=== PATIENT | female | born 1965 | race Caucasian/White ===

== ENCOUNTER → 2017-02-19 | Outpatient (CLI) | payer OTHER ==
[2017-02-19 19:11] LABS: Appearance,CSF Clear
[2017-02-23 02:19] LABS: Lyme Specimen Source Not Provided
== END | disposition home or self-care (01) ==
LOC: LABWHC1 15:05
PROVIDERS: ATTEND Psychiatry & Neurology Neurology
DX: R42 Dizziness and giddiness (principal); R51 Headache; R20.0 Anesthesia of skin
CPT/HCPCS: 36415; 82040; 82042; 82784; 83873; 83916; 84157; 87476; 88108; 89050

== ENCOUNTER → 2017-05-26 | Outpatient (CLI) | payer OTHER ==
[2017-05-26 11:19] LABS: Basophils % (A) 1 %; CH 29.4; CHCM 30.9; Eosinophils # (A) 0.1 k/uL (0-0.7); Eosinophils % (A) 2 %; HDW 2.54; HGB 13.2 gm/dL (11.4-16.0); Hypochromasia Slight; Luc # (Auto) 0.06; Luc % (Auto) 1; Lymphocytes # (A) 1.4 k/uL (1.0-4.8); Lymphocytes % (A) 31 %; MCH 29.4 pg (25.0-35.0); MCHC 30.7 g/dL (31.0-37.0); MCV 95.8 fL (80.0-100.0); Mean Platelet Volume 7.9; Monocytes # (A) 0.3 k/uL (0-1.0); Monocytes % (A) 7 %; Neutrophils # (A) 2.7 k/uL (1.3-7.7); Neutrophils % (A) 59 %; RBC 4.49 m/uL (3.80-5.40); RDW 12.7 % (11.5-15.5); WBC 4.6 k/uL (3.8-10.6); WBC (Perox) 4.82
[2017-05-26 11:24] LABS: ALT 38 U/L (9-52); AST 17 U/L (14-36); Alkaline Phosphatase 91 U/L (38-126); Anion Gap 7 mmol/L; Blood Urea Nitrogen 13 mg/dL (7-17); Calcium 9.5 mg/dL (8.4-10.2); Carbon Dioxide 22 mmol/L (22-30); Chloride 115 mmol/L (98-107); Glucose 94 mg/dL (74-99); Non-African American GFR(MDRD) >60 (>60 ml/min/1.73 sqM); Potassium 4.2 mmol/L (3.5-5.1); Sodium 144 mmol/L (137-145); Total Bilirubin 0.3 mg/dL (0.2-1.3); Total Protein 6.6 g/dL (6.3-8.2)
== END | disposition home or self-care (01) ==
LOC: LABWHC1 10:52
PROVIDERS: ATTEND Physician Assistant
DX: E55.9 Vitamin D deficiency, unspecified (principal); G35 Multiple sclerosis
CPT/HCPCS: 36415; 80053; 82306; 82607; 84439; 84443; 84481; 85025

== ENCOUNTER → 2017-08-12 | Outpatient (CLI) | payer OTHER ==
[2017-08-12 12:55] LABS: Basophils % (A) 1 %; Eosinophils # (A) 0.1 k/uL (0-0.7); Eosinophils % (A) 2 %; HCT 41.4 % (34.0-46.0); HGB 13.1 gm/dL (11.4-16.0); Hypochromasia Slight; Lymphocytes # (A) 1.8 k/uL (1.0-4.8); Lymphocytes % (A) 32 %; MCH 29.1 pg (25.0-35.0); MCHC 31.7 g/dL (31.0-37.0); MCV 91.7 fL (80.0-100.0); Mean Platelet Volume 8.2; Monocytes # (A) 0.3 k/uL (0-1.0); Monocytes % (A) 5 %; Neutrophils # (A) 3.5 k/uL (1.3-7.7); Neutrophils % (A) 60 %; Platelet Count 288 k/uL (150-450); RBC 4.52 m/uL (3.80-5.40); RDW 14.3 % (11.5-15.5); WBC 5.8 k/uL (3.8-10.6)
[2017-08-12 13:19] LABS: Albumin 3.8 g/dL (3.5-5.0); Bilirubin, Delta 0.2 mg/dL (0.0-0.2); Bilirubin,Unconjugated 0.2 mg/dL (0.0-1.1); Total Bilirubin 0.4 mg/dL (0.2-1.3); Total Protein 6.4 g/dL (6.3-8.2)
== END | disposition home or self-care (01) ==
LOC: LABWHC1 12:16
PROVIDERS: ATTEND Psychiatry & Neurology Neurology
DX: G35 Multiple sclerosis (principal); M79.1 Myalgia
CPT/HCPCS: 36415; 80076; 82085; 82550; 85025

== ENCOUNTER → 2017-10-13 | Outpatient (CLI) | payer OTHER ==
--- NOTE | 2017-10-13 13:04 | MR ---
MRI CERVICAL SPINE: CLINICAL HISTORY: Cervicalgia per order. Headache with sharp neck pain for 9 to 12 months causing phan n or weakness in both arms and fingers per patient. TECHNIQUE: Multiplanar, multisequence imaging of the cervical spine is performed without and with IV contrast, patient is injected with 8.5 cc of Gadavist for this exam. COMPARISON: None. FINDINGS: Sagittal images of the cervical spine show the craniocervical junction to appear within nor mal limits. The cervical and upper thoracic spinal cord is normal in course, caliber, and signal. V ertebral alignment is slightly straightened. The vertebral body and intravertebral disk heights are normal. Small posterior disc herniations are seen C5-C6 through C7-T1 level on sagittal images mildly effacing anterior thecal sac. No significant spurring is present. The bone marrow signal intensity i s within normal limits. No suspicious postcontrast enhancement is seen. Axial images show the C2-C3, C3-C4, C4-C5 levels all to appear within normal limits. Axial images at C5-C6 level show broad-based right paracentral disc protrusion effacing anterolateral thecal sac on axial image 22, bilateral neural foramina are patent. Axial images at C6-C7 level show more focal central disc protrusion mildly effacing anterior thecal s ac on axial image 13, bilateral neural foramina are patent. Axial images at C7-T1 level also show focal central disc protrusion effacing anterior thecal sac on a xial image 7, bilateral neural foramina are patent. IMPRESSION: Multilevel disc herniations in the mid to lower cervical spine as detailed above.
== END | disposition home or self-care (01) ==
LOC: RADMRIMAIN 12:00
PROVIDERS: ATTEND Psychiatry & Neurology Neurology
DX: M50.222 Other cervical disc displacement at C5-C6 level (principal)
CPT/HCPCS: 72156; A9581

== ENCOUNTER → 2017-12-29 | Outpatient (CLI) | payer OTHER ==
[2017-12-29 14:27] LABS: Basophils % (A) 1 %; Eosinophils # (A) 0.1 k/uL (0-0.7); Eosinophils % (A) 2 %; HCT 41.3 % (34.0-46.0); HGB 13.1 gm/dL (11.4-16.0); Lymphocytes # (A) 1.8 k/uL (1.0-4.8); Lymphocytes % (A) 33 %; MCHC 31.8 g/dL (31.0-37.0); Monocytes # (A) 0.3 k/uL (0-1.0); Monocytes % (A) 6 %; Neutrophils # (A) 3.1 k/uL (1.3-7.7); Neutrophils % (A) 58 %; Platelet Count 253 k/uL (150-450); RBC 4.54 m/uL (3.80-5.40); RDW 13.1 % (11.5-15.5); WBC 5.4 k/uL (3.8-10.6)
[2017-12-29 15:01] LABS: ALT 32 U/L (9-52); AST 22 U/L (14-36); Albumin 4.5 g/dL (3.5-5.0); Alkaline Phosphatase 102 U/L (38-126); Anion Gap 15 mmol/L; Blood Urea Nitrogen 10 mg/dL (7-17); Calcium 10.1 mg/dL (8.4-10.2); Carbon Dioxide 21 mmol/L (22-30); Chloride 111 mmol/L (98-107); Glucose 91 mg/dL (74-99); Sodium 147 mmol/L (137-145); Total Bilirubin 0.3 mg/dL (0.2-1.3); Total Protein 7.1 g/dL (6.3-8.2)
== END | disposition home or self-care (01) ==
LOC: LABWHC1 13:12
PROVIDERS: ATTEND Physician Assistant
DX: G35 Multiple sclerosis (principal); I49.9 Cardiac arrhythmia, unspecified
CPT/HCPCS: 36415; 80053; 85025; 93005

== ENCOUNTER → 2018-01-11 | Outpatient (CLI) | payer OTHER | END | disposition home or self-care (01) | LOC: LABWHC1 12:02 | PROVIDERS: ATTEND Physician Assistant | DX: G35 Multiple sclerosis (principal) | CPT/HCPCS: 36415; 86787 ==

== ENCOUNTER → 2018-02-02 | Outpatient (CLI) | payer OTHER ==
--- NOTE | 2018-02-02 10:41 | MR ---
EXAMINATION TYPE: MR brain wo/w con DATE OF EXAM: 02/02/2018 COMPARISON: MRI brain May 20, 2017 HISTORY: Multiple sclerosis per order. Symptoms of bilateral extremity numbness and weakness per kesha ent. TECHNIQUE: Multiplanar, multisequence images of the brain and brainstem is performed without and with IV contras t, utilizing 8.5 mL intravenous Gadavist gadolinium contrast is administered intravenously. Demyelin ating disease protocol with additional Sagittal Flair sequence performed. FINDINGS: T2 Lesions Present : Yes Approximate Number of Lesions: I estimate approximately 10-15 Locations Identified : Scattered, no infratentorial involvement is noted. Size of Reference Lesion(s): 1. 0.6 cm x 0.3 cm x 0.4 cm on axial image 20 and sagittal image 13 deep left frontal elongated lesi on or 2 small adjacent lesions is grossly stable in size and appearance. 2 0.6 cm x 0.5 cm x 0.2 cm on axial image 20 and sagittal image 31 irregular subcortical posterior right frontal lesion felt stable. Enhancing Lesion(s) Present: No T1 Hypointense Lesion(s) Present: Yes Change from Prior: Few new tiny lesions current exam not clearly seen on prior, for reference 2 -- 1 to 2 mm lesions subcortical anterior left frontal region axial image 18 Diffusion weighted images demonstrate no evidence of a recent infarct or other diffusion abnormality. There is no worrisome extra-axial fluid collection. The ventricular system and cisternal spaces ar e normal in size and appearance. The brain volume is age appropriate. Midline structures demonstrate normal morphology. The craniocervical junction appears within normal limits. Post contrast images demonstrate no abnormal enhancement. The dural venous sinuses appear pa tent. The visualized sinuses are clear and the globes are intact. IMPRESSION: Mild nonspecific white matter changes redemonstrated may be on basis of known multiple sc lerosis within suspected new tiny bilateral lesions versus prior. No enhancing or active lesions are evident.
== END | disposition home or self-care (01) ==
LOC: RADMRIMAIN 09:37
PROVIDERS: ATTEND Psychiatry & Neurology Neurology
DX: G35 Multiple sclerosis (principal); R90.89 Other abnormal findings on diagnostic imaging of central nervous system
CPT/HCPCS: 70553; A9581

== ENCOUNTER → 2018-05-17 | Outpatient (CLI) | payer OTHER ==
[2018-05-17 09:54] LABS: Basophils % (A) 0 %; Eosinophils # (A) 0.1 k/uL (0-0.7); Eosinophils % (A) 2 %; HCT 39.8 % (34.0-46.0); HGB 12.7 gm/dL (11.4-16.0); Lymphocytes # (A) 0.3 k/uL (1.0-4.8); Lymphocytes % (A) 10 %; MCH 29.7 pg (25.0-35.0); MCHC 31.9 g/dL (31.0-37.0); Mean Platelet Volume 7.1; Monocytes # (A) 0.2 k/uL (0-1.0); Monocytes % (A) 8 %; Neutrophils # (A) 2.5 k/uL (1.3-7.7); Neutrophils % (A) 79 %; Platelet Count 306 k/uL (150-450); RBC 4.28 m/uL (3.80-5.40); RDW 12.9 % (11.5-15.5); WBC 3.2 k/uL (3.8-10.6)
[2018-05-17 17:49] LABS: Albumin 4.5 g/dL (3.80-4.90); Albumin/Globulin Ratio 2.37 (1.20-2.10); Anion Gap 9.8 mmol/L (4.00-12.00); Carbon Dioxide 23.2 mmol/L (21.6-31.8); Globulin 1.9 g/dL (2.1-3.7); Total Bilirubin 0.3 mg/dL (0.2-1.2); Total Protein 6.4 g/dL (6.2-8.2)
== END ==
LOC: LABWHC1 08:53
PROVIDERS: ATTEND Physician Assistant
DX: G35 Multiple sclerosis (principal)
CPT/HCPCS: 36415; 80053; 82306; 85025

== ENCOUNTER → 2018-09-09 | Outpatient (CLI) | payer OTHER ==
[2018-09-09 13:10] LABS: Basophils % (A) 1 %; Eosinophils # (A) 0.1 k/uL (0-0.7); Eosinophils % (A) 2 %; HCT 41.1 % (34.0-46.0); HGB 12.7 gm/dL (11.4-16.0); Hypochromasia Slight; Lymphocytes # (A) 0.3 k/uL (1.0-4.8); Lymphocytes % (A) 8 %; MCV 93.8 fL (80.0-100.0); Mean Platelet Volume 8.4; Monocytes # (A) 0.4 k/uL (0-1.0); Monocytes % (A) 9 %; Neutrophils # (A) 3.3 k/uL (1.3-7.7); Neutrophils % (A) 80 %; Platelet Count 262 k/uL (150-450); RBC 4.38 m/uL (3.80-5.40); RDW 13.3 % (11.5-15.5); WBC 4.1 k/uL (3.8-10.6)
[2018-09-09 19:21] LABS: Albumin 4.3 g/dL (3.80-4.90); Albumin/Globulin Ratio 2.26 (1.60-3.17); Anion Gap 11.2 mmol/L (4.00-12.00); Calcium 9.8 mg/dL (8.7-10.3); Carbon Dioxide 23.8 mmol/L (21.6-31.8); Globulin 1.9 g/dL (1.6-3.3); Potassium 3.7 mmol/L (3.5-5.5); Total Bilirubin 0.3 mg/dL (0.2-1.2); Total Protein 6.2 g/dL (6.2-8.2)
== END | disposition home or self-care (01) ==
LOC: LABWHC1 12:39
PROVIDERS: ATTEND Physician Assistant
DX: G35 Multiple sclerosis (principal)
CPT/HCPCS: 36415; 80053; 82306; 85025

== ENCOUNTER → 2018-09-20 | Outpatient (CLI) | payer OTHER ==
[2018-09-20 14:44] LABS: Basophils % (A) 1 %; Eosinophils # (A) 0.1 k/uL (0-0.7); Eosinophils % (A) 2 %; HCT 40.2 % (34.0-46.0); HGB 12.4 gm/dL (11.4-16.0); Hypochromasia Slight; Lymphocytes # (A) 0.4 k/uL (1.0-4.8); Lymphocytes % (A) 11 %; MCH 28.9 pg (25.0-35.0); MCHC 30.9 g/dL (31.0-37.0); MCV 93.3 fL (80.0-100.0); Monocytes # (A) 0.3 k/uL (0-1.0); Monocytes % (A) 9 %; Neutrophils # (A) 2.8 k/uL (1.3-7.7); Neutrophils % (A) 76 %; Platelet Count 268 k/uL (150-450); RBC 4.31 m/uL (3.80-5.40); RDW 13.2 % (11.5-15.5); WBC 3.7 k/uL (3.8-10.6)
== END ==
LOC: LABWHC1 13:31
PROVIDERS: ATTEND Physician Assistant
DX: G35 Multiple sclerosis (principal)
CPT/HCPCS: 36415; 85025

== ENCOUNTER → 2018-09-27 | Outpatient (CLI) | payer OTHER ==
[2018-09-27 12:43] LABS: Basophils % (A) 1 %; Eosinophils # (A) 0.1 k/uL (0-0.7); Eosinophils % (A) 4 %; HCT 40.7 % (34.0-46.0); HGB 12.6 gm/dL (11.4-16.0); Hypochromasia Slight; Lymphocytes # (A) 0.3 k/uL (1.0-4.8); Lymphocytes % (A) 10 %; MCH 28.3 pg (25.0-35.0); MCHC 30.9 g/dL (31.0-37.0); MCV 91.8 fL (80.0-100.0); Mean Platelet Volume 7.6; Monocytes # (A) 0.3 k/uL (0-1.0); Monocytes % (A) 9 %; Neutrophils # (A) 2.7 k/uL (1.3-7.7); Neutrophils % (A) 75 %; Platelet Count 271 k/uL (150-450); RBC 4.44 m/uL (3.80-5.40); RDW 13.4 % (11.5-15.5); WBC 3.5 k/uL (3.8-10.6)
== END ==
LOC: LABWHC1 11:48
PROVIDERS: ATTEND Physician Assistant
DX: G35 Multiple sclerosis (principal)
CPT/HCPCS: 36415; 85025

== ENCOUNTER → 2018-10-28 | Outpatient (CLI) | payer OTHER ==
[2018-10-28 12:44] LABS: Basophils % (A) 1 %; Eosinophils # (A) 0.2 k/uL (0-0.7); Eosinophils % (A) 5 %; HGB 12.3 gm/dL (11.4-16.0); Hypochromasia Slight; Lymphocytes # (A) 0.5 k/uL (1.0-4.8); Lymphocytes % (A) 13 %; MCH 29.2 pg (25.0-35.0); MCHC 31.5 g/dL (31.0-37.0); MCV 92.6 fL (80.0-100.0); Mean Platelet Volume 8.4; Monocytes # (A) 0.3 k/uL (0-1.0); Monocytes % (A) 8 %; Neutrophils # (A) 2.8 k/uL (1.3-7.7); Neutrophils % (A) 72 %; Platelet Count 275 k/uL (150-450); RBC 4.21 m/uL (3.80-5.40); WBC 3.9 k/uL (3.8-10.6)
== END ==
LOC: LABWHC1 11:38
PROVIDERS: ATTEND Physician Assistant
DX: G35 Multiple sclerosis (principal)
CPT/HCPCS: 36415; 85025

== ENCOUNTER → 2018-12-27 | Outpatient (CLI) | payer OTHER ==
[2018-12-27 17:46] LABS: Basophils % (A) 0 %; Eosinophils # (A) 0.1 k/uL (0-0.7); Eosinophils % (A) 2 %; HCT 39.1 % (34.0-46.0); HGB 12.3 gm/dL (11.4-16.0); Hypochromasia Slight; Lymphocytes # (A) 0.5 k/uL (1.0-4.8); Lymphocytes % (A) 14 %; MCH 28.9 pg (25.0-35.0); MCHC 31.3 g/dL (31.0-37.0); MCV 92.1 fL (80.0-100.0); Mean Platelet Volume 8.2; Monocytes # (A) 0.3 k/uL (0-1.0); Monocytes % (A) 8 %; Neutrophils # (A) 2.9 k/uL (1.3-7.7); Neutrophils % (A) 74 %; Platelet Count 236 k/uL (150-450); RBC 4.25 m/uL (3.80-5.40); RDW 14.4 % (11.5-15.5); WBC 3.9 k/uL (3.8-10.6)
[2018-12-28 01:03] LABS: African American GFR (CKD) 116.3 (60.0-200.0); Albumin 4.6 g/dL (3.80-4.90); Albumin/Globulin Ratio 2.56 (1.60-3.17); Anion Gap 7.8 mmol/L (4.00-12.00); BUN/Creat Ratio 28.57 Ratio (12.00-20.00); Calcium 9.4 mg/dL (8.7-10.3); Carbon Dioxide 22.2 mmol/L (21.6-31.8); Globulin 1.8 g/dL (1.6-3.3); Potassium 3.9 mmol/L (3.5-5.5); Total Bilirubin 0.2 mg/dL (0.2-1.2); Total Protein 6.4 g/dL (6.2-8.2)
== END | disposition home or self-care (01) ==
LOC: LABWHC1 17:15
PROVIDERS: ATTEND Physician Assistant
DX: G35 Multiple sclerosis (principal)
CPT/HCPCS: 36415; 80053; 85025

== ENCOUNTER → 2019-05-06 | Outpatient (CLI) | payer OTHER ==
[2019-05-06 14:59] LABS: Basophils % (A) 0 %; Eosinophils # (A) 0.1 k/uL (0-0.7); Eosinophils % (A) 1 %; HGB 12.2 gm/dL (11.4-16.0); Lymphocytes # (A) 0.4 k/uL (1.0-4.8); Lymphocytes % (A) 11 %; MCH 29.1 pg (25.0-35.0); MCHC 30.5 g/dL (31.0-37.0); MCV 95.5 fL (80.0-100.0); Mean Platelet Volume 7.4; Monocytes # (A) 0.2 k/uL (0-1.0); Monocytes % (A) 5 %; Neutrophils # (A) 3.4 k/uL (1.3-7.7); Neutrophils % (A) 81 %; Platelet Count 287 k/uL (150-450); RBC 4.19 m/uL (3.80-5.40); RDW 13.1 % (11.5-15.5); WBC 4.2 k/uL (3.8-10.6)
[2019-05-06 18:32] LABS: African American GFR (CKD) 116.3 (60.0-200.0); Albumin 4.6 g/dL (3.80-4.90); Albumin/Globulin Ratio 2.56 (1.60-3.17); Anion Gap 7.8 mmol/L (4.00-12.00); Calcium 9.8 mg/dL (8.7-10.3); Carbon Dioxide 22.2 mmol/L (21.6-31.8); Globulin 1.8 g/dL (1.6-3.3); Potassium 3.7 mmol/L (3.5-5.5); Total Bilirubin 0.2 mg/dL (0.3-1.2); Total Protein 6.4 g/dL (6.2-8.2)
== END | disposition home or self-care (01) ==
LOC: LABWHC1 13:52
PROVIDERS: ATTEND Physician Assistant
DX: G35 Multiple sclerosis (principal)
CPT/HCPCS: 36415; 80053; 85025

== ENCOUNTER → 2019-05-31 | Outpatient (CLI) | payer OTHER ==
[2019-05-31 14:13] LABS: Basophils % (A) 0 %; Eosinophils % (A) 1 %; HCT 40.4 % (34.0-46.0); HGB 12.8 gm/dL (11.4-16.0); Hypochromasia Slight; Lymphocytes # (A) 0.5 k/uL (1.0-4.8); Lymphocytes % (A) 8 %; MCH 30.3 pg (25.0-35.0); MCHC 31.7 g/dL (31.0-37.0); MCV 95.5 fL (80.0-100.0); Mean Platelet Volume 7.1; Monocytes # (A) 0.4 k/uL (0-1.0); Monocytes % (A) 7 %; Neutrophils % (A) 84 %; Platelet Count 246 k/uL (150-450); RBC 4.23 m/uL (3.80-5.40); RDW 12.7 % (11.5-15.5)
== END | disposition home or self-care (01) ==
LOC: LABWHC1 12:59
PROVIDERS: ATTEND Physician Assistant
DX: G35 Multiple sclerosis (principal)
CPT/HCPCS: 36415; 85025

== ENCOUNTER → 2019-09-22 | Outpatient (CLI) | payer OTHER ==
[2019-09-22 18:46] LABS: ALT 28 U/L (8-44); AST 22 U/L (13-35); Alkaline Phosphatase 104 U/L (41-126); Bilirubin, Conjugated <0.20 mg/dL (0.20-0.40); Globulin 1.8 g/dL (1.6-3.3); Total Bilirubin 0.2 mg/dL (0.2-1.2); Total Protein 6.3 g/dL (6.2-8.2)
== END | disposition home or self-care (01) ==
LOC: LABWHC1 12:29
PROVIDERS: ATTEND Physician Assistant
DX: G35 Multiple sclerosis (principal); Z51.81 Encounter for therapeutic drug level monitoring
CPT/HCPCS: 36415; 80076

== ENCOUNTER → 2020-03-19 | Outpatient (CLI) | payer OTHER ==
[2020-03-19 11:10] LABS: Basophils % (A) 1 %; Eosinophils # (A) 0.1 k/uL (0-0.7); Eosinophils % (A) 1 %; HCT 39.6 % (34.0-46.0); HGB 12.1 gm/dL (11.4-16.0); Hypochromasia Slight; Lymphocytes # (A) 0.4 k/uL (1.0-4.8); Lymphocytes % (A) 10 %; MCH 28.1 pg (25.0-35.0); MCHC 30.4 g/dL (31.0-37.0); MCV 92.4 fL (80.0-100.0); Mean Platelet Volume 8.4; Monocytes # (A) 0.3 k/uL (0-1.0); Monocytes % (A) 7 %; Neutrophils # (A) 3.2 k/uL (1.3-7.7); Neutrophils % (A) 78 %; Platelet Count 240 k/uL (150-450); RBC 4.29 m/uL (3.80-5.40); RDW 13.4 % (11.5-15.5); WBC 4.1 k/uL (3.8-10.6)
[2020-03-19 18:50] LABS: African American GFR (CKD) 115.5 (60.0-200.0); Albumin 4.3 g/dL (3.80-4.90); Albumin/Globulin Ratio 2.53 (1.60-3.17); Anion Gap 7.4 mmol/L (4.00-12.00); BUN/Creat Ratio 28.57 Ratio (12.00-20.00); Calcium 9.4 mg/dL (8.7-10.3); Carbon Dioxide 21.6 mmol/L (21.6-31.8); Globulin 1.7 g/dL (1.6-3.3); Non-African American GFR(CKD) 99.6 (60.0-200.0); Potassium 3.9 mmol/L (3.5-5.5); Total Bilirubin 0.2 mg/dL (0.2-1.2)
== END | disposition home or self-care (01) ==
LOC: LABWHC1 09:47
PROVIDERS: ATTEND Physician Assistant
DX: G35 Multiple sclerosis (principal)
CPT/HCPCS: 36415; 80053; 85025

== ENCOUNTER → 2020-05-08 | Outpatient (CLI) | payer OTHER ==
[2020-05-08 12:45] LABS: Basophils % (A) 0 %; Eosinophils # (A) 0.1 k/uL (0-0.7); Eosinophils % (A) 1 %; HCT 42.7 % (34.0-46.0); HGB 13.1 gm/dL (11.4-16.0); Hypochromasia Slight; Lymphocytes # (A) 0.4 k/uL (1.0-4.8); Lymphocytes % (A) 8 %; MCH 28.8 pg (25.0-35.0); MCHC 30.7 g/dL (31.0-37.0); MCV 93.5 fL (80.0-100.0); Mean Platelet Volume 8.8; Monocytes # (A) 0.3 k/uL (0-1.0); Monocytes % (A) 6 %; Neutrophils # (A) 4.1 k/uL (1.3-7.7); Neutrophils % (A) 83 %; Platelet Count 242 k/uL (150-450); RBC 4.56 m/uL (3.80-5.40); RDW 13.9 % (11.5-15.5); WBC 4.9 k/uL (3.8-10.6)
== END | disposition home or self-care (01) ==
LOC: LABWHC1 11:01
PROVIDERS: ATTEND Physician Assistant
DX: D72.820 Lymphocytosis (symptomatic) (principal)
CPT/HCPCS: 36415; 85025

== ENCOUNTER → 2020-10-10 | Outpatient (CLI) | payer OTHER ==
[2020-10-11 00:40] LABS: HCT 39.8 % (37.2-46.3); HGB 12.8 g/dL (12.0-15.0); MCH 29.4 pg (27.0-32.0); MCHC 32.2 g/dL (32.0-37.0); MCV 91.3 fL (80.0-97.0); Mean Platelet Volume 11.5 fL (9.5-12.2); Platelet Count 292 X 10*3/uL (140-440); RBC 4.36 X 10*6/uL (4.10-5.20); RDW 13.7 % (11.5-14.5); WBC 4.82 X 10*3/uL (4.50-10.00)
[2020-10-11 11:05] LABS: African American GFR (CKD) 97.6 (60.0-200.0); Albumin 4.7 g/dL (3.80-4.90); Albumin/Globulin Ratio 2.35 (1.60-3.17); Anion Gap 10.4 mmol/L (4.00-12.00); BUN/Creat Ratio 28.75 Ratio (12.00-20.00); Calcium 10.6 mg/dL (8.7-10.3); Carbon Dioxide 17.6 mmol/L (21.6-31.8); Non-African American GFR(CKD) 84.2 (60.0-200.0); Potassium 4.3 mmol/L (3.5-5.5); Total Bilirubin 0.2 mg/dL (0.2-1.2); Total Protein 6.7 g/dL (6.2-8.2)
== END | disposition home or self-care (01) ==
LOC: LABWHC1 16:12
PROVIDERS: ATTEND Psychiatry & Neurology Neurology
DX: G35 Multiple sclerosis (principal); R42 Dizziness and giddiness; R51.9 Headache, unspecified; R53.83 Other fatigue
CPT/HCPCS: 36415; 80053; 82306; 82607; 85027

== ENCOUNTER → 2021-08-09 | Outpatient (CLI) | payer OTHER ==
[2021-08-09 20:15] LABS: Basophils # (A) 0.02 X 10*3/uL (0.00-0.10); Basophils % (A) 0.5 %; Eosinophils # (A) 0.02 X 10*3/uL (0.04-0.35); Eosinophils % (A) 0.5 %; HCT 42.3 % (37.2-46.3); HGB 13.2 g/dL (12.0-15.0); Lymphocytes # (A) 0.42 X 10*3/uL (0.90-5.00); Lymphocytes % (A) 10.8 %; MCH 29.2 pg (27.0-32.0); MCHC 31.2 g/dL (32.0-37.0); MCV 93.6 fL (80.0-97.0); Mean Platelet Volume 11.5 fL (9.5-12.2); Monocytes # (A) 0.37 X 10*3/uL (0.20-1.00); Monocytes % (A) 9.5 %; Neutrophils # (A) 3.03 X 10*3/uL (1.80-7.70); Neutrophils % (A) 77.9 %; Platelet Count 246 X 10*3/uL (140-440); RBC 4.52 X 10*6/uL (4.10-5.20); RDW 13.1 % (11.5-14.5); WBC 3.89 X 10*3/uL (4.50-10.00)
[2021-08-09 21:02] LABS: ALT 28 U/L (8-44); AST 23 U/L (13-35); African American GFR (CKD) 118.9 (60.0-200.0); Albumin 4.4 g/dL (3.8-4.9); Albumin/Globulin Ratio 1.63 (1.60-3.17); Alkaline Phosphatase 99 U/L (41-126); BUN/Creat Ratio 23.29 Ratio (12.00-20.00); Blood Urea Nitrogen 14.3 mg/dL (9.0-27.0); Calcium 9.8 mg/dL (8.7-10.3); Carbon Dioxide 20.6 mmol/L (20.0-27.5); Chloride 111 mmol/L (96-109); Globulin 2.7 g/dL (1.6-3.3); Glucose 103 mg/dL (70-110); Non-African American GFR(CKD) 102.6 (60.0-200.0); Potassium 3.7 mmol/L (3.5-5.5); Sodium 143 mmol/L (135-145); Total Bilirubin <0.20 mg/dL (0.30-1.20); Total Protein 7.1 g/dL (6.2-8.2)
== END | disposition home or self-care (01) ==
LOC: LABWHC1 12:27
PROVIDERS: ATTEND Psychiatry & Neurology Neurology
DX: G35 Multiple sclerosis (principal); E55.9 Vitamin D deficiency, unspecified
CPT/HCPCS: 36415; 80053; 82306; 85025

== ENCOUNTER → 2022-04-04 | Outpatient (CLI) | payer OTHER ==
[2022-04-04 18:20] LABS: Basophils # (A) 0.01 X 10*3/uL (0.00-0.10); Basophils % (A) 0.1 %; Eosinophils # (A) 0 X 10*3/uL (0.04-0.35); Eosinophils % (A) 0 %; HCT 40.6 % (37.2-46.3); HGB 12.9 g/dL (12.0-15.0); Immature Grans, Automated 0.7 %; Lymphocytes # (A) 0.71 X 10*3/uL (0.90-5.00); Lymphocytes % (A) 6.1 %; MCH 28.7 pg (27.0-32.0); MCHC 31.8 g/dL (32.0-37.0); MCV 90.2 fL (80.0-97.0); Mean Platelet Volume 11.5 fL (9.5-12.2); Monocytes # (A) 0.54 X 10*3/uL (0.20-1.00); Monocytes % (A) 4.7 %; NRBC Per 100 WBC 0 /100 WBCS (0.0-0.0); Neutrophils # (A) 10.27 X 10*3/uL (1.80-7.70); Neutrophils % (A) 88.4 %; Platelet Count 290 X 10*3/uL (140-440); RDW 14.3 % (11.5-14.5); WBC 11.61 X 10*3/uL (4.50-10.00)
[2022-04-04 19:24] LABS: Hepatitis A Antibody IgM Nonreactive (Nonreactive); Hepatitis B Core IgM Nonreactive (Nonreactive); Hepatitis B Surface Antigen Nonreactive (Nonreactive); Hepatitis C IgG Antibody Nonreactive (Nonreactive)
[2022-04-04 19:38] LABS: ALT 21 U/L (8-44); AST 12 U/L (13-35); African American GFR (CKD) 115.6 (60.0-200.0); Albumin 4.2 g/dL (3.8-4.9); Albumin/Globulin Ratio 2.08 (1.60-3.17); Alkaline Phosphatase 113 U/L (41-126); BUN/Creat Ratio 32.49 Ratio (12.00-20.00); Blood Urea Nitrogen 21.7 mg/dL (9.0-27.0); Calcium 9.8 mg/dL (8.7-10.3); Carbon Dioxide 24.6 mmol/L (20.0-27.5); Chloride 108 mmol/L (96-109); Glucose 158 mg/dL (70-110); Non-African American GFR(CKD) 99.8 (60.0-200.0); Potassium 3.9 mmol/L (3.5-5.5); Sodium 145 mmol/L (135-145); Total Bilirubin <0.15 mg/dL (0.30-1.20); Total Protein 6.2 g/dL (6.2-8.2)
== END | disposition home or self-care (01) ==
LOC: LABWHC1 12:07
PROVIDERS: ATTEND Physician Assistant
DX: Z00.00 Encounter for general adult medical examination without abnormal findings (principal)
CPT/HCPCS: 36415; 80053; 80074; 82306; 85025

== ENCOUNTER → 2022-08-05 | Outpatient (CLI) | payer OTHER ==
[2022-08-05 14:43] LABS: Basophils # (A) 0.04 X 10*3/uL (0.00-0.10); Basophils % (A) 0.8 %; Eosinophils # (A) 0.08 X 10*3/uL (0.04-0.35); Eosinophils % (A) 1.6 %; HCT 41.8 % (37.2-46.3); HGB 12.7 g/dL (12.0-15.0); Immature Grans, Automated 0.6 %; Lymphocytes % (A) 10.2 %; MCHC 30.4 g/dL (32.0-37.0); MCV 92.1 fL (80.0-97.0); Mean Platelet Volume 10.9 fL (9.5-12.2); Monocytes # (A) 0.56 X 10*3/uL (0.20-1.00); Monocytes % (A) 11.5 %; NRBC Per 100 WBC 0 /100 WBCS (0.0-0.0); Neutrophils # (A) 3.68 X 10*3/uL (1.80-7.70); Neutrophils % (A) 75.3 %; Platelet Count 309 X 10*3/uL (140-440); RBC 4.54 X 10*6/uL (4.10-5.20); RDW 12.9 % (11.5-14.5); WBC 4.89 X 10*3/uL (4.50-10.00)
== END | disposition home or self-care (01) ==
LOC: LABWHC1 09:17
PROVIDERS: ATTEND Physician Assistant
DX: G35 Multiple sclerosis (principal)
CPT/HCPCS: 36415; 85025

== ENCOUNTER 2022-10-22 17:26 | Emergency (ER) | payer OTHER ==
[2022-10-22 17:34] VITALS: PULSE 71; RESP 18; TEMP 98
[2022-10-22] MEDS ORDERED: methylPREDNISolone SOD SUCCIN 500 MG in SODIUM CHLORIDE 0.9% 100 ML IVPB STA (19:01)
--- NOTE | 2022-10-22 19:32 | ED ---
Dizziness HPI - General Source: RN notes reviewed, old records reviewed <Deangelo Rivas - Last Filed: 10/24/22 13:00> - General Source: patient Mode of arrival: ambulatory Limitations: physical limitation <KarlamaribellRohit - Last Filed: 11/04/22 04:43> - General Chief Complaint: Dizziness Stated Complaint: MS EPISODE/DIZZINESS Time Seen by Provider: 10/22/22 18:18 - History of Present Illness Initial Comments: 57-year-old female who has history of MS presents for evaluation of double vision, generalized weakness. Patient was sent in by her neurologist for IV steroids. She states her symptoms are classic of her previous MS exacerbations. She did receive steroids in the emergency department 2 days prior but it followed up with her neurologist request that she be admitted. The neurologist had recommended 1 g of Solu-Medrol daily for 3 days. (Deangelo Rivas) - Related Data Home Medications Medication Instructions Recorded Confirmed Atorvastatin [Lipitor] 20 mg PO HS 10/24/22 10/24/22 Dalfampridine [Dalfampridine ER] 10 mg PO BID 10/24/22 10/24/22 Fingolimod HCl [Gilenya] 0.5 mg PO DAILY 10/24/22 10/24/22 Pantoprazole [Protonix] 40 mg PO DAILY 10/24/22 10/24/22 Pregabalin [Lyrica] 100 mg PO TID 10/24/22 10/24/22 Sertraline [Zoloft] 200 mg PO DAILY 10/24/22 10/24/22 Topiramate [Topamax] 50 mg PO BID 10/24/22 10/24/22 hydrOXYzine HCL [Atarax] 12.5 - 25 mg PO Q8H PRN 10/24/22 10/24/22 lisinopriL [Zestril] 10 mg PO HS 10/24/22 10/24/22 ondansetron HCL [Zofran] 8 mg PO Q8H PRN 10/24/22 10/24/22 traZODone HCL [Desyrel] 100 mg PO HS 10/24/22 10/24/22 Allergies Allergy/AdvReac Type Severity Reaction Status Date / Time latex Allergy Rash/Hives Verified 10/24/22 13:47 Penicillins Allergy Rash/Hives Verified 10/24/22 13:47 Review of Systems ROS Other: All systems not noted in ROS Statement are negative. <Deangelo Rivas Lillian - Last Filed: 10/24/22 13:00> ROS Other: All systems not noted in ROS Statement are negative. <KarlamaribellRohit - Last Filed: 11/04/22 04:43> ROS Statement: Those systems with pertinent positive or pertinent negative responses have been documented in the HPI. Past Medical History Past Medical History: Diabetes Mellitus, Hypertension Additional Past Medical History / Comment(s): MS History of Any Multi-Drug Resistant Organisms: None Reported, C-DIFF Past Surgical History: No Surgical Hx Reported Past Psychological History: Anxiety, PTSD Smoking Status: Vaper Past Alcohol Use History: Rare Past Drug Use History: Marijuana <NicolasaRohit - Last Filed: 11/04/22 04:43> General Exam General appearance: alert, in no apparent distress Head exam: Present: atraumatic, normocephalic Eye exam: Present: normal appearance, PERRL ENT exam: Present: normal exam Neck exam: Present: normal inspection. Absent: tenderness, meningismus Respiratory exam: Present: normal lung sounds bilaterally. Absent: respiratory distress, wheezes Cardiovascular Exam: Present: regular rate, normal rhythm GI/Abdominal exam: Present: soft. Absent: distended, tenderness Extremities exam: Present: normal inspection, normal capillary refill. Absent: pedal edema Neurological exam: Present: alert, oriented X3, CN II-XII intact. Absent: motor sensory deficit Psychiatric exam: Present: normal affect, normal mood Skin exam: Present: warm, dry, intact. Absent: cyanosis, diaphoretic <Deangelo Rivas Lillian - Last Filed: 10/24/22 13:00> Limitations: physical limitation <NicolasaRohit - Last Filed: 11/04/22 04:43> Course Vital Signs 10/22/22 10/22/22 17:30 21:25 Temperature 98.0 F Pulse Rate 71 Respiratory 18 Rate Blood Pressure 90/53 119/98 O2 Sat by Pulse 92 L Oximetry EKG Findings - EKG Results: EKG: interpreted by ERMD, sinus rhythm, normal axis, normal QRS, normal ST/T EKG shows: bradycardia (Rate 58 bpm) <NicolasaRohit - Last Filed: 11/04/22 04:43> Medical Decision Making - Lab Data Result diagrams: 10/22/22 19:22 10/22/22 19:22 <MaritzaDeangelo horton - Last Filed: 10/24/22 13:00> - Lab Data Result diagrams: 10/22/22 19:22 10/22/22 19:22 <Rohit Baldwin - Last Filed: 11/04/22 04:43> - Medical Decision Making This patient is 57-year-old woman presenting with symptoms that she states are fairly typical of her previous MS flareups. The patient workup not revealing other cause for symptoms. She did receive initial dose of steroid in emergency Department and states she is feeling better and would like to go home and follow with her neurologist. We discussed appropriate further care and follow-up as well as return parameters. Was pt. sent in by a medical professional or institution (, PA, HOMEBOUND TEACHER, urgent care, hospital, or half-way...) When possible be specific @ -[No] Did you speak to anyone other than the patient for history (EMS, parent, family, police, friend...)? What history was obtained from this source @ -[No] Did you review nursing and triage notes (agree or disagree)? Why? @ -[I reviewed and agree with nursing and triage notes] Were old charts reviewed (outside hosp., previous admission, EMS record, old EKG, old radiological studies, urgent care reports/EKG's, half-way records)? Report findings @ -[No old charts were reviewed] Differential Diagnosis (chest pain, altered mental status, abdominal pain women, abdominal pain men, vaginal bleeding, weakness, fever, dyspnea, syncope, headache, dizziness, GI bleed, back pain, seizure, CVA, palpatations, mental health, musculoskeletal)? @ -[not applicable] EKG interpreted by me (3pts min.). @ -[As above] X-rays interpreted by me (1pt min.). @ -[None done] CT interpreted by me (1pt min.). @ -[None done] U/S interpreted by me (1pt. min.). @ -[None done] What testing was considered but not performed or refused? (CT, X-rays, U/S, labs)? Why? @ -[None] What meds were considered but not given or refused? Why? @ -[None] Did you discuss the management of the patient with other professionals (professionals i.e. , PA, HOMEBOUND TEACHER, lab, RT, psych nurse, psychosocial rehabilitation counselor, parachute folder, teacher, senior major gifts officer, counter caser)? Give summary @ -[No] Was smoking cessation discussed for >3mins.? @ -[No] Was critical care preformed (if so, how long)? @ -[No] Were there social determinants of health that impacted care today? How? (Homelessness, low income, unemployed, alcoholism, drug addiction, transportation, low edu. Level, literacy, decrease access to med. care, [facility], rehab)? @ -[No] Was there de-escalation of care discussed even if they declined (Discuss DNR or withdrawal of care, Hospice)? DNR status @ -[No] What co-morbidities impacted this encounter? (DM, HTN, Smoking, COPD, CAD, Cancer, CVA, ARF, Chemo, Hep., AIDS, mental health diagnosis, sleep apnea, morbid obesity)? @ -[None] Was patient admitted / discharged? Hospital course, mention meds given and route, prescriptions, significant lab abnormalities, going to OR and other pertinent info. @ -[Discharged with close follow-up and to continue course of steroid Undiagnosed new problem with uncertain prognosis? @ -[No] Drug Therapy requiring intensive monitoring for toxicity (Heparin, Nitro, Insulin, Cardizem)? @ -[No] Were any procedures done? @ -[No] Diagnosis/symptom? @ -[Acute exacerbation of MS Acute, or Chronic, or Acute on Chronic? @ -[default] Uncomplicated (without systemic symptoms) or Complicated (systemic symptoms)? @ -[Uncomplicated Side effects of treatment? @ -[No] Exacerbation, Progression, or Severe Exacerbation? @ -[Exacerbation Poses a threat to life or bodily function? How? (Chest pain, [place], [place], pneumonia, PE, COPD, DKA, ARF, appy, cholecystitis, CVA, Diverticulitis, Homicidal, Suicidal, threat to staff... and all critical care pts) @ -[No] (Rohit Baldwin) - Lab Data Lab Results 10/22/22 10/22/22 10/22/22 Range/Units 19:22 19:22 19:22 WBC 3.4 L (3.8-10.6) k/uL RBC 4.46 (3.80-5.40) m/uL Hgb 13.0 (11.4-16.0) gm/dL Hct 39.6 (34.0-46.0) % MCV 88.6 (80.0-100.0) fL MCH 29.1 (25.0-35.0) pg MCHC 32.8 (31.0-37.0) g/dL RDW 13.3 (11.5-15.5) % Plt Count 256 (150-450) k/uL MPV 8.7 Neutrophils % 73 % Lymphocytes % 11 % Monocytes % 11 % Eosinophils % 2 % Basophils % 1 % Neutrophils # 2.5 (1.3-7.7) k/uL Lymphocytes # 0.4 L (1.0-4.8) k/uL Monocytes # 0.4 (0-1.0) k/uL Eosinophils # 0.1 (0-0.7) k/uL Basophils # 0.0 (0-0.2) k/uL Sodium 138 (137-145) mmol/L Potassium 3.7 (3.5-5.1) mmol/L Chloride 108 H (98-107) mmol/L Carbon Dioxide 22 (22-30) mmol/L Anion Gap 8 mmol/L BUN 17 (7-17) mg/dL Creatinine 1.13 H (0.52-1.04) mg/dL Est GFR (CKD-EPI)AfAm 63 (>60 ml/min/1.73 sqM) Est GFR (CKD-EPI)NonAf 55 (>60 ml/min/1.73 sqM) Glucose 104 H (74-99) mg/dL Calcium 9.3 (8.4-10.2) mg/dL Magnesium 2.1 (1.6-2.3) mg/dL Total Bilirubin 0.4 (0.2-1.3) mg/dL AST 33 (14-36) U/L ALT 39 H (4-34) U/L Alkaline Phosphatase 98 (38-126) U/L Troponin I <0.012 (0.000-0.034) ng/mL Total Protein 6.5 (6.3-8.2) g/dL Albumin 4.1 (3.5-5.0) g/dL Disposition <Deangelo Rivas - Last Filed: 10/24/22 13:00> Is patient prescribed a controlled substance at d/c from ED?: No <Rohit Baldwin - Last Filed: 11/04/22 04:43> Clinical Impression: Multiple sclerosis Disposition: HOME SELF-CARE Condition: Good Instructions (If sedation given, give patient instructions): Multiple Sclerosis (DC), Dizziness (ED) Referrals: Deangelo Schneider MD [Primary Care Provider] - 1-2 days
[2022-10-22 19:48] LABS: Basophils % (A) 1 %; Eosinophils # (A) 0.1 k/uL (0-0.7); Eosinophils % (A) 2 %; HCT 39.6 % (34.0-46.0); Lymphocytes # (A) 0.4 k/uL (1.0-4.8); Lymphocytes % (A) 11 %; MCH 29.1 pg (25.0-35.0); MCHC 32.8 g/dL (31.0-37.0); MCV 88.6 fL (80.0-100.0); Mean Platelet Volume 8.7; Monocytes # (A) 0.4 k/uL (0-1.0); Monocytes % (A) 11 %; Neutrophils # (A) 2.5 k/uL (1.3-7.7); Neutrophils % (A) 73 %; Platelet Count 256 k/uL (150-450); RBC 4.46 m/uL (3.80-5.40); RDW 13.3 % (11.5-15.5); WBC 3.4 k/uL (3.8-10.6)
[2022-10-22 19:53] LABS: Albumin 4.1 g/dL (3.5-5.0); Magnesium 2.1 mg/dL (1.6-2.3); Potassium 3.7 mmol/L (3.5-5.1); Total Bilirubin 0.4 mg/dL (0.2-1.3); Total Protein 6.5 g/dL (6.3-8.2)
[2022-10-22 19:54] LABS: Calcium 9.3 mg/dL (8.4-10.2)
[2022-10-22 21:25] VITALS: BP 119/98
== END 2022-10-22 21:25 | disposition home or self-care (01) ==
LOC: EC 17:26
DX: G35 Multiple sclerosis (principal); E11.9 Type 2 diabetes mellitus without complications; I10 Essential (primary) hypertension; F41.9 Anxiety disorder, unspecified; F17.290 Nicotine dependence, other tobacco product, uncomplicated; F12.90 Cannabis use, unspecified, uncomplicated; Z88.0 Allergy status to penicillin; Z91.040 Latex allergy status; Z79.899 Other long term (current) drug therapy
CPT/HCPCS: 36415; 93005; 80053; 83735; 84484; 85025; 99284; 96365; J2930

== ENCOUNTER 2022-10-24 11:45 | Inpatient (IN) | payer OTHER ==
[2022-10-24] MEDS ORDERED: methylPREDNISolone SOD SUCCIN 1,000 MG in SODIUM CHLORIDE 0.9% 250 ML IVPB STA (12:37)
[2022-10-24 12:59] LABS: Basophils % (A) 0 %; Eosinophils % (A) 0 %; HCT 37.4 % (34.0-46.0); HGB 12.3 gm/dL (11.4-16.0); Lymphocytes # (A) 0.4 k/uL (1.0-4.8); Lymphocytes % (A) 6 %; MCH 29.1 pg (25.0-35.0); MCHC 32.8 g/dL (31.0-37.0); MCV 88.9 fL (80.0-100.0); Mean Platelet Volume 9.1; Monocytes # (A) 0.4 k/uL (0-1.0); Monocytes % (A) 6 %; Neutrophils # (A) 5.7 k/uL (1.3-7.7); Neutrophils % (A) 87 %; Platelet Count 285 k/uL (150-450); RBC 4.21 m/uL (3.80-5.40); RDW 13.6 % (11.5-15.5); WBC 6.5 k/uL (3.8-10.6)
[2022-10-24 13:09] LABS: Albumin 3.8 g/dL (3.5-5.0); Calcium 9.3 mg/dL (8.4-10.2); Potassium 3.9 mmol/L (3.5-5.1); Total Bilirubin 0.2 mg/dL (0.2-1.3); Total Protein 6.2 g/dL (6.3-8.2)
[2022-10-24] MEDS ORDERED: ACETAMINOPHEN TAB 325 MG TAB PO PRN (13:11)
[2022-10-24] MEDS ORDERED: NALOXONE 0.4 MG/ML 1 ML VIAL IV PRN (13:11)
--- NOTE | 2022-10-24 13:20 | ED ---
General Adult HPI - General Chief complaint: Recheck/Abnormal Lab/Rx Stated complaint: infusion Time Seen by Provider: 10/24/22 12:02 Source: patient, RN notes reviewed, old records reviewed Mode of arrival: ambulatory Limitations: no limitations - History of Present Illness Initial comments: 57-year-old female presents for evaluation of blurry, double vision, and generalized weakness. Patient was sent in by her neurologist for evaluation and request for admission for MS exacerbation. Patient states her symptoms are classic of her normal MS exacerbation. She denies chest pain or abdominal pain. She reports generalized weakness without focal complaints. She was given 500 mg of Solu-Medrol on Thursday and is scheduled for evaluation at her n eurologist office on Thursday which is 3 days from now. It was requested that the patient be admitted for IV steroids for 3 days. - Related Data Previous Rx's Medication Instructions Recorded predniSONE 80 mg PO DAILY #40 tab 10/22/22 Allergies Allergy/AdvReac Type Severity Reaction Status Date / Time latex Allergy Rash/Hives Verified 10/24/22 12:00 Penicillins Allergy Rash/Hives Verified 10/24/22 12:00 Review of Systems ROS Statement: Those systems with pertinent positive or pertinent negative responses have been documented in the HPI. ROS Other: All systems not noted in ROS Statement are negative. Past Medical History Past Medical History: Diabetes Mellitus, Hypertension Additional Past Medical History / Comment(s): MS History of Any Multi-Drug Resistant Organisms: None Reported, C-DIFF Past Surgical History: No Surgical Hx Reported Past Psychological History: Anxiety, PTSD Smoking Status: Vaper Past Alcohol Use History: Rare Past Drug Use History: Marijuana General Exam Limitations: no limitations General appearance: alert, in no apparent distress Head exam: Present: atraumatic, normocephalic Eye exam: Present: normal appearance, PERRL ENT exam: Present: normal exam Neck exam: Present: normal inspection. Absent: tenderness, meningismus Respiratory exam: Present: normal lung sounds bilaterally. Absent: respiratory distress, wheezes Cardiovascular Exam: Present: regular rate, normal rhythm GI/Abdominal exam: Present: soft. Absent: distended, tenderness Extremities exam: Present: normal inspection, normal capillary refill. Absent: pedal edema Neurological exam: Present: alert, oriented X3, CN II-XII intact. Absent: motor sensory deficit Psychiatric exam: Present: normal affect, normal mood Skin exam: Present: warm, dry, intact. Absent: cyanosis, diaphoretic Course Vital Signs 10/24/22 11:57 Temperature 98 F Pulse Rate 62 Respiratory 18 Rate Blood Pressure 111/74 O2 Sat by Pulse 96 Oximetry Medical Decision Making - Medical Decision Making Was pt. sent in by a medical professional or institution (ELROY Zapata, [employer], urgent care, hospital, or fpc...) When possible be specific @ -Sent in by neurologist Did you speak to anyone other than the patient for history (EMS, parent, family, police, friend...)? What history was obtained from this source @ -No Did you review nursing and triage notes (agree or disagree)? Why? @ -I reviewed and agree with nursing and triage notes Were old charts reviewed (outside hosp., previous admission, EMS record, old EKG, old radiological studies, urgent care reports/EKG's, fpc records)? Report findings @ -No old charts were reviewed Differential Diagnosis (chest pain, altered mental status, abdominal pain women, abdominal pain men, vaginal bleeding, weakness, fever, dyspnea, syncope, headache, dizziness, GI bleed, back pain, seizure, CVA, palpatations, mental health, musculoskeletal)? @ -Differential Weakness: Hypoglycemia, shock, sepsis, hyponatremia, MS, anemia, infection, [place], ETOH, adverse medicine reaction, overdose, stroke, this is not meant to be an all-inclusive list. EKG interpreted by me (3pts min.). @ -As above X-rays interpreted by me (1pt min.). @ -None done CT interpreted by me (1pt min.). @ -None done U/S interpreted by me (1pt. min.). @ -None done What testing was considered but not performed or refused? (CT, X-rays, U/S, labs)? Why? @ -None What meds were considered but not given or refused? Why? @ -None Did you discuss the management of the patient with other professionals (professionals i.e. ELROY Zapata, [employer], lab, RT, psych nurse, dialysis social worker, clinical nurse specialist, teacher, border patrol officer, bilingual case manager)? Give summary @ -[Case discussed with Dr. Melendrez Was smoking cessation discussed for >3mins.? @ -No Was critical care preformed (if so, how long)? @ -No Were there social determinants of health that impacted care today? How? (Homelessness, low income, unemployed, alcoholism, drug addiction, transportation, low edu. Level, literacy, decrease access to med. care, [facility], rehab)? @ -No Was there de-escalation of care discussed even if they declined (Discuss DNR or withdrawal of care, Hospice)? DNR status @ -No What co-morbidities impacted this encounter? (DM, HTN, Smoking, COPD, CAD, Cancer, CVA, ARF, Chemo, Hep., AIDS, mental health diagnosis, sleep apnea, morbid obesity)? @ -MS Was patient admitted / discharged? Hospital course, mention meds given and route, prescriptions, significant lab abnormalities, going to OR and other pertinent info. @ -Patient will be admitted for high-dose IV steroids. Undiagnosed new problem with uncertain prognosis? @ -No Drug Therapy requiring intensive monitoring for toxicity (Heparin, Nitro, Insulin, Cardizem)? @ -No Were any procedures done? @ -No Diagnosis/symptom? @ -Weakness, MS exacerbation Acute, or Chronic, or Acute on Chronic? @ -acute Uncomplicated (without systemic symptoms) or Complicated (systemic symptoms)? @ -complicated Side effects of treatment? @ -No Exacerbation, Progression, or Severe Exacerbation? @ -No Poses a threat to life or bodily function? How? (Chest pain, [place], [place], pneumonia, PE, COPD, DKA, ARF, appy, cholecystitis, CVA, Diverticulitis, Homicidal, Suicid al, threat to staff... and all critical care pts) @ -No - Lab Data Result diagrams: 10/24/22 12:38 10/24/22 12:38 Lab Results 10/24/22 10/24/22 Range/Units 12:38 12:38 WBC 6.5 (3.8-10.6) k/uL RBC 4.21 (3.80-5.40) m/uL Hgb 12.3 (11.4-16.0) gm/dL Hct 37.4 (34.0-46.0) % MCV 88.9 (80.0-100.0) fL MCH 29.1 (25.0-35.0) pg MCHC 32.8 (31.0-37.0) g/dL RDW 13.6 (11.5-15.5) % Plt Count 285 (150-450) k/uL MPV 9.1 Neutrophils % 87 % Lymphocytes % 6 % Monocytes % 6 % Eosinophils % 0 % Basophils % 0 % Neutrophils # 5.7 (1.3-7.7) k/uL Lymphocytes # 0.4 L (1.0-4.8) k/uL Monocytes # 0.4 (0-1.0) k/uL Eosinophils # 0.0 (0-0.7) k/uL Basophils # 0.0 (0-0.2) k/uL Sodium 141 (137-145) mmol/L Potassium 3.9 (3.5-5.1) mmol/L Chloride 114 H (98-107) mmol/L Carbon Dioxide 19 L (22-30) mmol/L Anion Gap 8 mmol/L BUN 30 H (7-17) mg/dL Creatinine 0.98 (0.52-1.04) mg/dL Est GFR (CKD-EPI)AfAm 75 (>60 ml/min/1.73 sqM) Est GFR (CKD-EPI)NonAf 65 (>60 ml/min/1.73 sqM) Glucose 135 H (74-99) mg/dL Calcium 9.3 (8.4-10.2) mg/dL Total Bilirubin 0.2 (0.2-1.3) mg/dL AST 22 (14-36) U/L ALT 34 (4-34) U/L Alkaline Phosphatase 85 (38-126) U/L Total Protein 6.2 L (6.3-8.2) g/dL Albumin 3.8 (3.5-5.0) g/dL Disposition Clinical Impression: Multiple sclerosis Disposition: ADMITTED IP TO THIS [facility] Condition: Stable Is patient prescribed a controlled substance at d/c from ED?: No Referrals: Deangelo Schneider MD [Primary Care Provider] - 1-2 days Time of Disposition: 13:20
[2022-10-24] MEDS: SODIUM CHLORIDE 0.9% 1,000 ML IV SCH (13:48)
[2022-10-24] MEDS ORDERED: ONDANSETRON 4 MG TAB PO PRN (14:27)
--- NOTE | 2022-10-24 14:36 | P.HPIM ---
History of Present Illness H&P Date: 10/24/22 Chief Complaint: dizziness, generalized weakness 57-year-old woman with medical history multiple sclerosis, hyperlipidemia, hypertension, GERD, mood disorder presented for evaluation of dizziness, generalized weakness. Patient says her symptoms started approximately 3 days ago when she went to see her neurologist for which she suspected to be a multiple sclerosis flare. She was advised by her neurologist that she was in fact having a flare and that she should come to the emergency room for IV steroids. She came to the emergency room on 10/22 and received 5 mg of IV Solu- Medrol, then was discharged home. However, she knows that she has not been feeling any better, ongoing dizziness, generalized weakness. She has been slightly nauseous but has not vomited. She denies any other symptoms including abdominal pain, fevers, chills, chest pain, palpitations, syncope, cough, dyspnea, constipation, diarrhea, dysuria, dyschezia, numbness/weakness of extremities. In the emergency room, patient was afebrile, 111/74, heart rate 62, 96% on room air. CBC is unremarkable. Chemistries show chloride of 114, CO2 of 19, BUN of 30. Liver function tests are unremarkable. EKG from 10/22 showed sinus bradycardia without evidence of ischemia. All Systems reviewed and pertinent positives and negatives noted in HPI, all other symptoms are negative Gen: in no apparent distress, resting comfortably in bed Eyes: PERRL, no scleral injection or icterus HENT: normocephalic, atraumatic, good hearing acuity, moist mucous membranes Neck: no tracheal deviation, full range of motion Resp: good air exchange, breathing comfortably with no accessory muscle use, no tactile fremitus CVS: good distal perfusion x 4, no pitting edema GI: soft, NTTP, ND, no hepatosplenomegaly : no suprapubic tenderness, no CVAT, gaitan catheter not present MSK: no clubbing, no cyanosis, no noted contractures of extremities Skin: no noted rashes, petechiae; temperature of skin is appropriate Neuro: moving all extremities without signs of weakness, CN II-XII intact Psych: cooperative, euthymic mood, insight and judgment intact Labs and imaging as above Assessment: Dizziness Generalized weakness History multiple sclerosis Hypertension Hyperlipidemia GERD Mood disorder Plan: Vital signs reviewed and noted in HPI Labs reviewed and noted in HPI EKG was grossly interpreted noted in HPI Case was discussed the emergency room physician's decision was made to admit the patient to observation for generalized weakness Continue Solu-Medrol 1000 mg daily ESR, CRP ordered for tomorrow morning CBC, basic metabolic panel, magnesium ordered for tomorrow morning Neurology consulted Orthostatics twice daily ordered Patient is full code Past Medical History Past Medical History: Diabetes Mellitus, Hypertension Additional Past Medical History / Comment(s): MS History of Any Multi-Drug Resistant Organisms: None Reported, C-DIFF Past Surgical History: No Surgical Hx Reported Past Psychological History: Anxiety, PTSD Smoking Status: Vaper Past Alcohol Use History: Rare Past Drug Use History: Marijuana Medications and Allergies Home Medications Medication Instructions Recorded Confirmed Type Atorvastatin [Lipitor] 20 mg PO HS 10/24/22 10/24/22 History Dalfampridine [Dalfampridine ER] 10 mg PO BID 10/24/22 10/24/22 History Fingolimod HCl [Gilenya] 0.5 mg PO DAILY 10/24/22 10/24/22 History Pantoprazole [Protonix] 40 mg PO DAILY 10/24/22 10/24/22 History Pregabalin [Lyrica] 100 mg PO TID 10/24/22 10/24/22 History Sertraline [Zoloft] 200 mg PO DAILY 10/24/22 10/24/22 History Topiramate [Topamax] 50 mg PO BID 10/24/22 10/24/22 History hydrOXYzine HCL [Atarax] 12.5 - 25 mg PO Q8H PRN 10/24/22 10/24/22 History lisinopriL [Zestril] 10 mg PO HS 10/24/22 10/24/22 History ondansetron HCL [Zofran] 8 mg PO Q8H PRN 10/24/22 10/24/22 History traZODone HCL [Desyrel] 100 mg PO HS 10/24/22 10/24/22 History Allergies Allergy/AdvReac Type Severity Reaction Status Date / Time latex Allergy Rash/Hives Verified 10/24/22 13:47 Penicillins Allergy Rash/Hives Verified 10/24/22 13:47 Physical Exam Osteopathic Statement: *. No significant issues noted on an osteopathic structural exam other than those noted in the History and Physical/Consult. Vitals: Vital Signs Temp Pulse Resp BP Pulse Ox 10/24/22 13:47 97 F L 62 18 102/49 94 L 10/24/22 11:57 98 F 62 18 111/74 96 Intake and Output 10/23/22 10/24/22 10/24/22 22:59 06:59 14:59 Other: Weight 95.254 kg Results CBC & Chem 7: 10/24/22 12:38 10/24/22 12:38 Labs: Abnormal Lab Results - Last 24 Hours (Table) 10/24/22 10/24/22 Range/Units 12:38 12:38 Lymphocytes # 0.4 L (1.0-4.8) k/uL Chloride 114 H (98-107) mmol/L Carbon Dioxide 19 L (22-30) mmol/L BUN 30 H (7-17) mg/dL Glucose 135 H (74-99) mg/dL Total Protein 6.2 L (6.3-8.2) g/dL
[2022-10-24] MEDS: PREGABALIN 100 MG CAP PO SCH ×2 (17:03→22:02)
[2022-10-24 18:30] LABS: Glucose,Whole Blood 177 mg/dL (70-110)
[2022-10-24 20:54] LABS: Glucose,Whole Blood 269 mg/dL (70-110)
[2022-10-24] MEDS: TOPIRAMATE 25 MG TAB PO SCH (22:01)
[2022-10-24] MEDS: ATORVASTATIN 20 MG TAB PO SCH (22:02)
[2022-10-24] MEDS: traZODone HCL 100 MG TAB PO SCH (22:02)
[2022-10-24] MEDS: DALFAMPRIDINE 10 MG PO SCH (22:02)
[2022-10-24] MEDS: lisinopriL 10 MG TAB PO SCH (22:03)
[2022-10-25] MEDS: SODIUM CHLORIDE 0.9% 1,000 ML IV SCH ×2 (02:15→15:27)
[2022-10-25 07:38] LABS: Glucose,Whole Blood 172 mg/dL (70-110)
[2022-10-25] MEDS: TOPIRAMATE 25 MG TAB PO SCH ×2 (08:40→21:39)
[2022-10-25] MEDS: methylPREDNISolone SOD SUCCIN 1,000 MG in SODIUM CHLORIDE 0.9% 250 ML IVPB SCH (08:40)
[2022-10-25] MEDS: SERTRALINE 100 MG TAB PO SCH (08:40)
[2022-10-25] MEDS: PREGABALIN 100 MG CAP PO SCH ×3 (08:40→21:40)
[2022-10-25] MEDS: INSULIN ASPART (NovoLOG) 100 UNIT/ML VIAL SQ SCH ×4 (08:41→21:37)
[2022-10-25] MEDS: DALFAMPRIDINE 10 MG PO SCH ×2 (08:41→21:41)
[2022-10-25] MEDS: PANTOPRAZOLE 40 MG TABLET PO SCH (08:41)
[2022-10-25] MEDS: Fingolimod Hcl [Gilenya] 0.5 MG Capsule PO SCH ×2 (08:42→15:48)
[2022-10-25] MEDS ORDERED: methylPREDNISolone SOD SUCCI 125 MG/2 ML VIAL IV SCH (09:00)
--- NOTE | 2022-10-25 11:29 | P.CNNES ---
History of Present Illness Consult date: 10/25/22 Reason for Consult: MS flareup History of Present Illness: The patient is a 57-year-old female who is seen in neurologic consultation on October 25, 2022, via telemedicine. The patient reports she came into the hospital because of a flareup of her multiple sclerosis. She states that she did see her neurologist on Thursday with complaints of weakness, exhaustion, diplopia and shaking. She says that her neurologist ordered a dose of IV Solu-Medrol to be administered in the emergency department because the infusion center was closed. The patient reportedly did have a dose of Solu-Medrol and was discharged home. The patient does not know how much Solu-Medrol she received. She reports no benefit from that steroid dosing. Her symptoms have progressed. The patient denies signs of infection. She denies fever, chills, dysuria, cough. The patient does report episodes of inability to urinate for 2 or 3 days at a time. The patient was reportedly diagnosed with multiple sclerosis in 2016. She is taking Gilenya as a prophylactic medication. Patient states that she had a flareup within the last year. The patient believes she had an MRI of her brain 3 or 4 months ago. Review of Systems Genitourinary: Reports difficulty voiding (The patient reports having episodes of inability to urinate for 2-3 days) Past Medical History Past Medical History: Diabetes Mellitus, Hypertension Additional Past Medical History / Comment(s): MS History of Any Multi-Drug Resistant Organisms: C-DIFF Date of last positivie culture/infection: 2009 MDRO Source:: Stool Past Surgical History: No Surgical Hx Reported Past Anesthesia/Blood Transfusion Reactions: No Reported Reaction Additional Past Anesthesia/Blood Transfusion Reaction / Comment(s): pt states she has woken up during surgery in the past Past Psychological History: Anxiety, PTSD Smoking Status: Vaper Past Alcohol Use History: Rare Past Drug Use History: Marijuana Medications and Allergies Home Medications Medication Instructions Recorded Confirmed Type Atorvastatin [Lipitor] 20 mg PO HS 10/24/22 10/24/22 History Dalfampridine [Dalfampridine ER] 10 mg PO BID 10/24/22 10/24/22 History Fingolimod HCl [Gilenya] 0.5 mg PO DAILY 10/24/22 10/24/22 History Pantoprazole [Protonix] 40 mg PO DAILY 10/24/22 10/24/22 History Pregabalin [Lyrica] 100 mg PO TID 10/24/22 10/24/22 History Sertraline [Zoloft] 200 mg PO DAILY 10/24/22 10/24/22 History Topiramate [Topamax] 50 mg PO BID 10/24/22 10/24/22 History hydrOXYzine HCL [Atarax] 12.5 - 25 mg PO Q8H PRN 10/24/22 10/24/22 History lisinopriL [Zestril] 10 mg PO HS 10/24/22 10/24/22 History ondansetron HCL [Zofran] 8 mg PO Q8H PRN 10/24/22 10/24/22 History traZODone HCL [Desyrel] 100 mg PO HS 10/24/22 10/24/22 History Allergies Allergy/AdvReac Type Severity Reaction Status Date / Time latex Allergy Rash/Hives Verified 10/24/22 13:47 Penicillins Allergy Rash/Hives Verified 10/24/22 13:47 Physical Examination - Vital Signs Vital Signs: Vital Signs Temp Pulse Pulse Pulse Pulse Resp BP 10/25/22 08:00 98.1 F 53 L 15 10/25/22 01:37 97.5 F L 55 L 15 10/24/22 18:21 97.6 F 57 L 57 L 55 L 18 10/24/22 18:00 55 L 18 113/55 10/24/22 17:00 49 L 18 122/63 10/24/22 13:47 97 F L 62 18 102/49 10/24/22 11:57 98 F 62 18 111/74 BP BP BP Pulse Ox 10/25/22 08:00 109/70 97 10/25/22 01:37 125/71 98/64 112/68 98 10/24/22 18:21 110/71 101/67 115/74 96 10/24/22 18:00 97 10/24/22 17:00 97 10/24/22 13:47 94 L 10/24/22 11:57 96 Intake and Output 10/24/22 10/25/22 10/25/22 22:59 06:59 14:59 Other: Voiding Method Toilet # Voids 1 Weight 95.254 kg Gen.: The patient is reclining in the bed. She is in no acute distress. She is obese. HEENT: Head is atraumatic, normocephalic. Fundus not visualized. There is no scleral icterus. Mucous membranes are moist. Neck: Supple Heart: Regular rate and rhythm Lungs: There is no evidence of shortness of breath Extremities: Without edema Neurological examination Mental status: The patient is awake, alert and oriented 3. Her speech is clear. There is no dysarthria or aphasia. Cranial nerves: Pupils are equal at 5 mm and reactive. Visual arellano are full to confrontation. Extraocular movements are intact. There is no nystagmus. Facial sensations intact. There is no facial asymmetry. Hearing is grossly intact. Uvula and palate are midline. Shoulder shrug is symmetric. Tongue protrudes midline. Motor: There is generalized weakness throughout, with strength at 4/5 Sensation: Grossly intact to light touch throughout. There is no extinction with double simultaneous stimulation. Coordination: Finger to nose, heel to meier and rapid alternating movements are intact. Deep tendon reflexes: 2-3+/4+ throughout Gait: Not assessed Results - Laboratory Findings CBC and BMP: 10/24/22 12:38 10/24/22 12:38 Abnormal Lab Findings: Abnormal Labs 10/24/22 10/24/22 10/24/22 12:38 12:38 18:29 Lymphocytes # 0.4 L Chloride 114 H Carbon Dioxide 19 L BUN 30 H Glucose 135 H POC Glucose (mg/dL) 177 H Total Protein 6.2 L 10/24/22 10/25/22 20:52 07:36 Lymphocytes # Chloride Carbon Dioxide BUN Glucose POC Glucose (mg/dL) 269 H 172 H Total Protein Assessment and Plan Assessment: 1. Reported worsening of symptoms of multiple sclerosis-possible exacerbation versus worsening secondary to infection. In light of the patient's reported difficulty urinating, UTI must be considered 2. Elevated BUN, consistent with dehydration 3. History of diabetes mellitus 4. History of hypertension Plan: 1. Check urinalysis 2. If urine is clear of infection, the patient should be started on IV Solu- Medrol, 1 g IV piggyback, daily 3 days 3. Outpatient urology evaluation for urinary retention and difficulty voiding
[2022-10-25 11:34] LABS: Glucose,Whole Blood 263 mg/dL (70-110)
[2022-10-25 12:16] VITALS: BMI 37.2
[2022-10-25 13:23] LABS: Basophils # (A) 0 X 10*3/uL (0.00-0.10); Basophils % (A) 0 %; Eosinophils # (A) 0 X 10*3/uL (0.04-0.35); Eosinophils % (A) 0 %; HCT 36.6 % (37.2-46.3); HGB 11.5 g/dL (12.0-15.0); Immature Grans, Automated 0.4 %; Lymphocytes # (A) 0.33 X 10*3/uL (0.90-5.00); Lymphocytes % (A) 6.9 %; MCH 28.6 pg (27.0-32.0); MCHC 31.4 g/dL (32.0-37.0); Mean Platelet Volume 11.5 fL (9.5-12.2); Monocytes # (A) 0.12 X 10*3/uL (0.20-1.00); Monocytes % (A) 2.5 %; NRBC Per 100 WBC 0 /100 WBCS (0.0-0.0); Neutrophils # (A) 4.28 X 10*3/uL (1.80-7.70); Neutrophils % (A) 90.2 %; Platelet Count 265 X 10*3/uL (140-440); RBC 4.02 X 10*6/uL (4.10-5.20); RDW 13.7 % (11.5-14.5); WBC 4.75 X 10*3/uL (4.50-10.00)
--- NOTE | 2022-10-25 14:21 | P.PN ---
Subjective Progress Note Date: 10/25/22 (delayd charting seen at 0845) Patient is a 57-year-old female with a history of multiple sclerosis, hypertension, dyslipidemia, GERD, and mood disorder who presented for dizziness and generalized weakness at the direction of her outpatient neurologist for possible multiple sclerosis flare. Patient had initially presented to the ER on 10/22/22 and was seen in the emergency department received 1 dose of IV steroids and was discharged home. On arrival to the ER this admission her vital signs are within normal limits. Laboratory analysis was remarkable for chloride of 114, carbon dioxide 19, BUN 30, creatinine 0.98, and glucose of 135. There is concern for possible MS flare. She was started on Solu-Medrol thousand milligrams IV daily and admitted for further monitoring. Orthostatic vital signs were negative. Patient had slight bradycardia at 53-57 bpm. Patient seen and examined at bedside. Slight improvement in her dizziness and double vision. No improvement in weakness. She reports that she has never required hospitalization for an MS flare in the past. She denies any recent cough, cold, fever, flu, nausea, vomiting. She has been rotating between going to the bathroom more often and then less often. She does report increased thirst over the last several months. She was diagnosed with diabetes several months ago and has been attempting diet control. Vital signs reviewed General: nontoxic, no distress, appears at stated age Cardiovascular: S1S2 reg, no murmur, positive posterior tibial pulse bilateral, Lungs: CTA bilateral, no rhonchi, no rales , no accessory muscle use Abdominal: soft, nontender to palpation, no guarding, no appreciable organomeg dorota Ext: no gross muscle atrophy, no edema, no contractures Neuro: CN II-XI grossly intact, no focal neuro deficits Psych: Alert, oriented, appropriate affect Assessment: Dizziness and weakness with history of multiple sclerosis, suspect multiple sclerosis flare HTN HLD GERD Mood disorder Imaging: None for review Data Review: Vital signs reviewed from this morning. Orthostatic blood pressures were negative. Morning vital signs reveals a temperature of 98.1, heart rate 53, respirations 15, blood pressure 109/70, and O2 sat of 97% on room air Labs for today are remarkable for hemoglobin of 11.5. Blood sugars reviewed and yesterday evening there were 269 and 177. Plan: -Consult neurology -Continue with methylprednisolone thousand milligrams daily -Continue with Lyrica 100 mg 3 times daily, Topamax 50 mg twice daily, trazodone 100 mg at night, Zoloft 200 mg daily -Continue with lisinopril 10 mg at night and Lipitor 20 mg at night -Check Urinalysis to rule out infection -Check A1C - Stat levemir 10 units this evening and continue with novolog sliding scale - Consult PT DVT prophylaxis: Lovenox Discussed with: Patient Anticipated discharge date: Pending Clinical Course Anticipated discharge place: Pending Clinical Course This dictation was prepared using [employer] voice recognition software. Though every attempt is made to correct errors during during dictation some may still exist. Objective - Vital Signs Vital signs: Vital Signs Temp 98.8 F 10/25/22 13:36 Pulse 57 L 10/25/22 13:36 Resp 16 10/25/22 13:36 BP 152/84 10/25/22 13:36 Pulse Ox 98 10/25/22 13:36 FiO2 Intake & Output 10/24/22 10/25/22 10/25/22 18:59 06:59 18:59 Weight 95.254 kg 95.254 kg 95.254 kg Other: Voiding Method Toilet # Voids 1 - Labs CBC & Chem 7: 10/25/22 06:21 10/24/22 12:38 Labs: Abnormal Lab Results - Last 24 Hours (Table) 10/24/22 10/24/22 10/25/22 Range/Units 18:29 20:52 06:21 RBC 4.02 L (4.10-5.20) X 10*6/uL Hgb 11.5 L (12.0-15.0) g/dL Hct 36.6 L (37.2-46.3) % MCHC 31.4 L (32.0-37.0) g/dL Lymphocytes # 0.33 L (0.90-5.00) X 10*3/uL Monocytes # 0.12 L (0.20-1.00) X 10*3/uL Eosinophils # 0 L (0.04-0.35) X 10*3/uL POC Glucose (mg/dL) 177 H 269 H (70-110) mg/dL 10/25/22 10/25/22 Range/Units 07:36 11:32 RBC (4.10-5.20) X 10*6/uL Hgb (12.0-15.0) g/dL Hct (37.2-46.3) % MCHC (32.0-37.0) g/dL Lymphocytes # (0.90-5.00) X 10*3/uL Monocytes # (0.20-1.00) X 10*3/uL Eosinophils # (0.04-0.35) X 10*3/uL POC Glucose (mg/dL) 172 H 263 H (70-110) mg/dL
[2022-10-25 14:28] LABS: Appearance,Urine Cloudy (Clear); Bacteria,Urine Moderate /hpf; Bilirubin,Urine Negative (Negative); Blood,Urine Small (Negative); Calcium Oxalate Crystals,Urine Few /hpf; Color,Urine Yellow; Glucose,Urine (UA) 2+ (Negative); Ketones,Urine Negative (Negative); Leukocyte Esterase,Urine Small (Negative); Mucus,Urine Few /hpf; Nitrite,Urine Negative (Negative); Protein,Urine Trace (Negative); RBC,Urine 24 /hpf (0-5); Specific Gravity,Urine 1.024 (1.001-1.035); Squamous Epithelial Cell,Urine 5 /hpf (0-4); Urobilinogen,Urine <2.0 mg/dL (<2.0); WBC,Urine 17 /hpf (0-5)
[2022-10-25 15:25] LABS: African American GFR (CKD) 96.2 (60.0-200.0); Blood Urea Nitrogen 25.2 mg/dL (9.0-27.0); C Reactive Protein <0.30 mg/dL (0.00-0.80); Calcium 9.1 mg/dL (8.7-10.3); Chloride 116 mmol/L (96-109); Glucose 198 mg/dL (70-110); Magnesium 2.1 mg/dL (1.5-2.4); Potassium 3.7 mmol/L (3.5-5.5); Sodium 144 mmol/L (135-145)
[2022-10-25] MEDS: ENOXAPARIN 40 MG/0.4 ML SYRINGE SQ SCH (15:27)
[2022-10-25 16:43] LABS: Glucose,Whole Blood 195 mg/dL (70-110)
[2022-10-25] MEDS: ASPIRIN-ACET-CAFF 250-250-65MG 1 EACH TAB PO PRN (18:07)
[2022-10-25 20:06] LABS: Glucose,Whole Blood 178 mg/dL (70-110)
[2022-10-25] MEDS: ATORVASTATIN 20 MG TAB PO SCH (21:37)
[2022-10-25] MEDS: lisinopriL 10 MG TAB PO SCH (21:39)
[2022-10-25] MEDS: INSULIN DETEMIR (LEVEMIR) 100 UNIT/ML SYR SQ SCH (21:39)
[2022-10-25] MEDS: traZODone HCL 100 MG TAB PO SCH (21:40)
[2022-10-26] MEDS: SODIUM CHLORIDE 0.9% 1,000 ML IV SCH (06:40)
[2022-10-26 07:35] LABS: Glucose,Whole Blood 105 mg/dL (70-110)
[2022-10-26] MEDS: INSULIN ASPART (NovoLOG) 100 UNIT/ML VIAL SQ SCH ×4 (07:48→21:02)
[2022-10-26] MEDS: ENOXAPARIN 40 MG/0.4 ML SYRINGE SQ SCH (08:07)
[2022-10-26] MEDS: Fingolimod Hcl [Gilenya] 0.5 MG Capsule PO SCH (08:07)
[2022-10-26] MEDS: PREGABALIN 100 MG CAP PO SCH ×3 (08:08→21:02)
[2022-10-26] MEDS: TOPIRAMATE 25 MG TAB PO SCH ×2 (08:08→20:08)
[2022-10-26] MEDS: PANTOPRAZOLE 40 MG TABLET PO SCH (08:08)
[2022-10-26] MEDS: SERTRALINE 100 MG TAB PO SCH (08:08)
[2022-10-26] MEDS: DALFAMPRIDINE 10 MG PO SCH ×2 (08:09→19:41)
[2022-10-26] MEDS: methylPREDNISolone SOD SUCCIN 1,000 MG in SODIUM CHLORIDE 0.9% 250 ML IVPB SCH (08:25)
[2022-10-26] MEDS ORDERED: ONDANSETRON 4 MG/2 ML VIAL IVP PRN (09:07)
[2022-10-26] MEDS ORDERED: LOPERAMIDE 2 MG CAP PO STA (09:07)
[2022-10-26 12:10] LABS: Glucose,Whole Blood 119 mg/dL (70-110)
--- NOTE | 2022-10-26 15:17 | P.PN ---
Subjective Progress Note Date: 10/26/22 (delayed charing seen at 0910) Patient is a 57-year-old female with a history of multiple sclerosis, hypertension, dyslipidemia, GERD, and mood disorder who presented for dizziness and generalized weakness at the direction of her outpatient neurologist for possible multiple sclerosis flare. Patient had initially presented to the ER on 10/22/22 and was seen in the emergency department received 1 dose of IV steroids and was discharged home. On arrival to the ER this admission her vital signs are within normal limits. Laboratory analysis was remarkable for chloride of 114, carbon dioxide 19, BUN 30, creatinine 0.98, and glucose of 135. There is concern for possible MS flare. She was started on Solu-Medrol thousand milligrams IV daily and admitted for further monitoring. Orthostatic vital signs were negative. Patient had slight bradycardia at 53-57 bpm. Patient seen and examined at bedside. She reports that she started having bowel movements at 5 AM this morning. She reports that everything has just "run through her". She is not eating because she is worried about having recurrent bowel movements. She reports that she started feeling slightly sick yesterday evening. She does have a history of C. diff back in 2009 when she had a hysterectomy. Her weakness is getting better and dizziness has resolved. Vital signs reviewed General: nontoxic, no distress, appears at stated age Cardiovascular: S1S2 reg, no murmur, positive posterior tibial pulse bilateral, Lungs: CTA bilateral, no rhonchi, no rales , no accessory muscle use Abdominal: soft, nontender to palpation, no guarding, no appreciable organomegaly Ext: no gross muscle atrophy, no edema, no contractures Neuro: CN II-XI grossly intact, no focal neuro deficits Psych: Alert, oriented, appropriate affect Assessment: Dizziness and weakness with history of multiple sclerosis, suspect multiple sclerosis flare Diarrhea with history of C. diff colitis. Diabetes mellitus type 2, newly diagnosed in the outpatient setting with A1c 6.7 Hyperchloremic metabolic acidosis HTN HLD GERD Mood disorder Imaging: None for review Data Review: Vital signs reviewed from this morning. Temperature 97.7, heart rate 46, blood pressure 135/66, respirations 18, O2 sat 98% on room air Blood sugars reviewed and fasting 105, yesterday evening blood sugars were 195 and 178 Urinalysis reviewed: No signs of infection Plan: -Neurology Reviewed: Outpatient urology workup: Continue with Solu-Medrol -Continue with methylprednisolone thousand milligrams daily day #3 -Continue with Lyrica 100 mg 3 times daily, Topamax 50 mg twice daily, trazodone 100 mg at night, Zoloft 200 mg daily -Continue with lisinopril 10 mg at night and Lipitor 20 mg at night - Continue levemir 10 units this evening and continue with novolog sliding scale - Await PT recs - Check C diff if negative imodium DVT prophylaxis: Lovenox Discussed with: Patient Anticipated discharge date: in AM Anticipated discharge place: Home This dictation was prepared using [employer] voice recognition software. Though every attempt is made to correct errors during during dictation some may still exist. Objective - Vital Signs Vital signs: Vital Signs Temp 97.7 F 10/26/22 07:35 Pulse 46 L 10/26/22 07:35 Resp 18 10/26/22 07:35 BP 135/66 10/26/22 07:35 Pulse Ox 98 10/26/22 07:35 FiO2 Intake & Output 10/25/22 10/26/22 10/26/22 18:59 06:59 18:59 Intake Total 1080 Balance 1080 Weight 95.254 kg Intake: Oral 1080 Other: Voiding Method Toilet # Voids 1 1 1 # Bowel Movements 1 - Labs CBC & Chem 7: 10/25/22 06:21 10/25/22 06:21 Labs: Abnormal Lab Results - Last 24 Hours (Table) 10/25/22 10/25/22 10/25/22 Range/Units 06:21 12:38 16:41 Chloride 116 H (96-109) mmol/L Carbon Dioxide 17.0 L (20.0-27.5) mmol/L BUN/Creatinine Ratio 31.50 H (12.00-20.00) Ratio Glucose 198 H (70-110) mg/dL POC Glucose (mg/dL) 195 H (70-110) mg/dL Hemoglobin A1c 6.7 H (0.0-6.0) % 10/25/22 10/26/22 Range/Units 20:04 12:09 Chloride (96-109) mmol/L Carbon Dioxide (20.0-27.5) mmol/L BUN/Creatinine Ratio (12.00-20.00) Ratio Glucose (70-110) mg/dL POC Glucose (mg/dL) 178 H 119 H (70-110) mg/dL Hemoglobin A1c (0.0-6.0) % Microbiology - Last 24 Hours (Table) 10/25/22 13:54 Urine Culture - Preliminary Urine,Voided
[2022-10-26] MEDS: DEXTROSE 5% IN WATER 1,000 ML with SODIUM BICARB (1 MEQ/ML) 150 ML IV SCH (16:19)
[2022-10-26 17:25] LABS: Glucose,Whole Blood 292 mg/dL (70-110)
[2022-10-26] MEDS: lisinopriL 10 MG TAB PO SCH (20:08)
[2022-10-26] MEDS: traZODone HCL 100 MG TAB PO SCH (20:08)
[2022-10-26] MEDS: ATORVASTATIN 20 MG TAB PO SCH (20:08)
[2022-10-26] MEDS: ASPIRIN-ACET-CAFF 250-250-65MG 1 EACH TAB PO PRN (20:09)
[2022-10-26 20:21] LABS: Glucose,Whole Blood 282 mg/dL (70-110)
[2022-10-26] MEDS: INSULIN DETEMIR (LEVEMIR) 100 UNIT/ML SYR SQ SCH (21:03)
[2022-10-27] MEDS: DEXTROSE 5% IN WATER 1,000 ML with SODIUM BICARB (1 MEQ/ML) 150 ML IV SCH (05:05)
[2022-10-27 06:48] LABS: HCT 34.6 % (34.0-46.0); HGB 11.7 gm/dL (11.4-16.0); MCH 29.5 pg (25.0-35.0); MCHC 33.8 g/dL (31.0-37.0); MCV 87.3 fL (80.0-100.0); Mean Platelet Volume 8.9; Platelet Count 211 k/uL (150-450); RBC 3.97 m/uL (3.80-5.40); RDW 13.6 % (11.5-15.5); WBC 4.9 k/uL (3.8-10.6)
[2022-10-27 07:06] LABS: African American GFR (CKD) >90 (>60 ml/min/1.73 sqM); Anion Gap 5 mmol/L; Blood Urea Nitrogen 16 mg/dL (7-17); Calcium 8.3 mg/dL (8.4-10.2); Carbon Dioxide 27 mmol/L (22-30); Chloride 111 mmol/L (98-107); Glucose 145 mg/dL (74-99); Non-African American GFR(CKD) >90 (>60 ml/min/1.73 sqM); Sodium 143 mmol/L (137-145)
[2022-10-27 07:18] LABS: Potassium 2.6 mmol/L (3.5-5.1)
[2022-10-27] MEDS: PREGABALIN 100 MG CAP PO SCH ×2 (07:25→16:47)
[2022-10-27] MEDS: PANTOPRAZOLE 40 MG TABLET PO SCH (07:25)
[2022-10-27] MEDS: SERTRALINE 100 MG TAB PO SCH (07:25)
[2022-10-27] MEDS: Fingolimod Hcl [Gilenya] 0.5 MG Capsule PO SCH (07:26)
[2022-10-27] MEDS: ENOXAPARIN 40 MG/0.4 ML SYRINGE SQ SCH (07:26)
[2022-10-27] MEDS: TOPIRAMATE 25 MG TAB PO SCH (07:26)
[2022-10-27] MEDS: DALFAMPRIDINE 10 MG PO SCH (07:27)
[2022-10-27] MEDS: INSULIN ASPART (NovoLOG) 100 UNIT/ML VIAL SQ SCH ×3 (07:27→17:18)
[2022-10-27 07:50] LABS: Glucose,Whole Blood 132 mg/dL (70-110)
[2022-10-27] MEDS ORDERED: POTASSIUM CHLORIDE 20 MEQ in WATER FOR INJECTION 1 100ML.BAG IVPB STA (07:51)
[2022-10-27] MEDS ORDERED: POTASSIUM CHLORIDE ER 20 MEQ TAB.ER PO STA ×2 (07:51→16:18)
[2022-10-27] MEDS ORDERED: POTASSIUM BICARBONATE/CIT AC 20 MEQ TABLET.EFF PO ONE (07:52)
[2022-10-27] MEDS: methylPREDNISolone SOD SUCCIN 1,000 MG in SODIUM CHLORIDE 0.9% 250 ML IVPB SCH (07:53)
[2022-10-27] MEDS ORDERED: FLUTICASONE 50MCG/SPRAY NASAL 16GM EA NOSTRIL SCH (09:00)
[2022-10-27 09:32] LABS: Erythrocyte Sedimentation Rate 15 mm/Hr (0-30)
[2022-10-27] MEDS ORDERED: POTASSIUM CHLORIDE ER 20 MEQ TAB.ER PO ONE (10:00)
[2022-10-27 11:05] LABS: Glucose,Whole Blood 144 mg/dL (70-110)
--- NOTE | 2022-10-27 11:21 | P.PN ---
Subjective Progress Note Date: 10/27/22 Up seeing the patient for the first time during this admission. Please refer to Dr. Espinoza's note for further details. According to patient as she has been diagnosed with multiple sclerosis since 2017 and she follows up with Dr. Lao's team. She stated that she had multiple images and investigation for her MS and was confirmed that she had MS. She is on Gelenya 0.5mg daily. She uses a cane at baseline. On presentation she states that that she had dizziness had the diplopia and confusion. Regar ding her dizziness she felt to she was so dizzy that she felt like she was drunk. She feels is due to her dizziness isn't improved while the diplopia is also improved but has not resolved. Denies focal weakness or numbness. She has been getting IV steroids for the past 3 days in our facility Of note she had MRI of the brain last in our facility 2018 and she reported as mild nonspecific white matter changes redemonstrated may be on the basis of known multiple sclerosis with suspected new tiny bilateral lesion versus prior. No enhancing or active lesions are evident. Objective - Vital Signs Vital signs: Vital Signs Temp 98.1 F 10/27/22 08:00 Pulse 49 L 10/27/22 08:00 Resp 16 10/27/22 02:00 BP 153/82 10/27/22 08:00 Pulse Ox 96 10/27/22 08:00 FiO2 Intake & Output 10/26/22 10/27/22 10/27/22 18:59 06:59 18:59 Intake Total 1150 1490 Balance 1150 1490 Intake: Intake, IV Titration 1150 900 Amount Dextrose 5% in Water 1, 150 900 000 ml @ 75 mls/hr IV . [id number] MANDO with Sodium Bicarb (1 Meq/ml) 150 ml Rx#:[id number] Sodium Chloride 0.9% 1, 750 000 ml @ 75 mls/hr IV . [id number] MANDO Rx#:[id number] methylPREDNISolone SOD 250 SUCCIN 1,000 mg In Sodium Chloride 0.9% 250 ml @ 250 mls/hr IVPB DAILY MANDO Rx#:[id number] Oral 590 Other: Voiding Method Toilet # Voids 2 2 2 # Bowel Movements 1 - Exam GENERAL: The patient is lying in bed and is not in acute distress. NEUROLOGICAL: Higher mental function: The patient is awake, alert, oriented to self, place and time. Patient is following commands. No aphasia and no neglect. Cranial nerves: The pupils are round, equal and reactive to light and accommo dation. Visual arellano are full to confrontation throughout. Extraocular movement is intact no nystagmus is noted. Facial sensation is normal to touch throughout. The facial strength is normal throughout. Tongue is midline and moved [id number] without any difficulty. No dysarthria is noted. Shoulder shrug is normal bilaterally. Motor: The strength is hard to assess individual muscle because of her cooperation but had at least 4-4+ throughout. Normal tone and bulk. Cerebellum: Normal finger to nose bilaterally. Sensation: Sensation is normal to touch throughout. - Labs CBC & Chem 7: 10/27/22 05:55 10/27/22 05:55 Labs: Abnormal Lab Results - Last 24 Hours (Table) 10/25/22 10/26/22 10/26/22 Range/Units 12:38 12:09 17:24 Potassium (3.5-5.1) mmol/L Chloride (98-107) mmol/L Glucose (74-99) mg/dL POC Glucose (mg/dL) 119 H 292 H (70-110) mg/dL Hemoglobin A1c 6.7 H (0.0-6.0) % Calcium (8.4-10.2) mg/dL 10/26/22 10/27/22 10/27/22 Range/Units 20:19 05:55 07:48 Potassium 2.6 L* (3.5-5.1) mmol/L Chloride 111 H (98-107) mmol/L Glucose 145 H (74-99) mg/dL POC Glucose (mg/dL) 282 H 132 H (70-110) mg/dL Hemoglobin A1c (0.0-6.0) % Calcium 8.3 L (8.4-10.2) mg/dL 10/27/22 Range/Units 11:04 Potassium (3.5-5.1) mmol/L Chloride (98-107) mmol/L Glucose (74-99) mg/dL POC Glucose (mg/dL) 144 H (70-110) mg/dL Hemoglobin A1c (0.0-6.0) % Calcium (8.4-10.2) mg/dL Microbiology - Last 24 Hours (Table) 10/25/22 13:54 Urine Culture - Final Urine,Voided Assessment and Plan Assessment: Relapse of her multiple sclerosis (presents with dizziness, diplopia, confusion) History of multiple sclerosis since 2017 Diabetes mellitus History of hypertension Plan: Today is day 3 of IV Solu-Medrol 1 g. She is on Gilenya 0.5mg daily. Recommend updated image such as MRI the brain and cervical spine with her neurologist as an outpatient (Dr. Lao) to assess for any new lesion. Recommend the patient follow-up with her neurologist in outpatient within 1-2 weeks The plan discussed with the patient as well as the primary team. Time with Patient: Less than 30
[2022-10-27 12:04] VITALS: BP 138/74; PULSE 53; RESP 18; TEMP 98.6
[2022-10-27] MEDS: ASPIRIN-ACET-CAFF 250-250-65MG 1 EACH TAB PO PRN (12:55)
--- NOTE | 2022-10-27 16:31 | P.DS ---
Providers Date of admission: 10/24/22 13:19 Expected date of discharge: 10/27/22 Attending physician: Ana Paula Melendrez MD Consults: 10/25/22 09:04 Consult Physician Urgent Consulting Provider: Pacheco Fall Consult Reason/Comments: MS flair Do you want consulting provider notified?: Yes Primary care physician: Deangelo Schneider Hospital Course: Discharge Diagnosis: Multiple Sclerosis relapse Diabetes mellitus type 2, newly diagnosed in the outpatient setting with A1c 6.7 Hyperchloremic metabolic acidosis HTN HLD GERD Mood disorder Hospital Course: Patient is a 57-year-old female with a history of multiple sclerosis, hypertension, dyslipidemia, GERD, and mood disorder who presented for dizziness and generalized weakness at the direction of her outpatient neurologist for possible multiple sclerosis flare. Patient had initially presented to the ER on 10/22/22 and was seen in the emergency department received 1 dose of IV steroids and was discharged home. On arrival to the ER this admission her vital signs are within normal limits. Laboratory analysis was remarkable for chloride of 114, carbon dioxide 19, BUN 30, creatinine 0.98, and glucose of 135. There is concern for possible MS flare. She was started on Solu-Medrol thousand milligrams IV daily and admitted for further monitoring. Orthostatic vital signs were negative. Patient had slight bradycardia at 53-57 bpm. She slowly improved with her multiple doses of Solu-Medrol. She did have 3 episodes of diarrhea which resolved spontaneously and prior to C. diff sample being obtained. Case was discussed with neurology and she is determined stable for discharge. She should ideally have repeat imaging to check the progress of her MS, however this can be safely done in the outpatient setting and she regularly follows up with Dr. Lao's office. Due to her on going to hopefully she should also be evaluated by ophthalmology in the outpatient setting. Follow-up: No medication changes. Repeat BMP in 3 days, follow wtih Dr. Alexander (A1C 6.7 on diet control), Dr. Lao in 1 week, Dr. Layne in 1 week. Patient seen and examined at bedside. Weakness and dizziness are much improved. She still has some double vision when looking off to the side but none when looking in the center. Her diarrhea has resolved. Vital signs reviewed and stable. General: nontoxic, no distress, appears at stated age Derm: warm, dry Head: atraumatic, normocephalic, symmetric Eyes: EOMI, no lid lag, anicteric sclera Mouth: no lip lesion, mucus membranes moist Cardiovascular: S1S2 reg, no murmur, positive posterior tibial pulse bilateral, Lungs: CTA bilateral, no rhonchi, no rales , no accessory muscle use Abdominal: soft, nontender to palpation, no guarding, no appreciable organomegaly Ext: no gross muscle atrophy, no edema, no contractures Neuro: CN II-XI grossly intact, no gross focal neuro deficits noted Psych: Alert, oriented, appropriate affect A total of 32 minutes of time were spent preparing this complex discharge summary. Patient was discharged on 10/27/22. This dictation was prepared using [employer] voice recognition software. Though every attempt is made to correct errors during during dictation some may still exist. Patient Condition at Discharge: Stable Plan - Discharge Summary Discharge Rx Participant: Yes New Discharge Prescriptions: Continue Topiramate [Topamax] 50 mg PO BID Sertraline [Zoloft] 200 mg PO DAILY traZODone HCL [Desyrel] 100 mg PO HS ondansetron HCL [Zofran] 8 mg PO Q8H PRN PRN Reason: Nausea hydrOXYzine HCL [Atarax] 12.5 - 25 mg PO Q8H PRN PRN Reason: Anxiety Fingolimod HCl [Gilenya] 0.5 mg PO DAILY Dalfampridine [Dalfampridine ER] 10 mg PO BID Atorvastatin [Lipitor] 20 mg PO HS Pregabalin [Lyrica] 100 mg PO TID lisinopriL [Zestril] 10 mg PO HS Pantoprazole [Protonix] 40 mg PO DAILY Discharge Medication List Atorvastatin [Lipitor] 20 mg PO HS 10/24/22 [History] Dalfampridine [Dalfampridine ER] 10 mg PO BID 10/24/22 [History] Fingolimod HCl [Gilenya] 0.5 mg PO DAILY 10/24/22 [History] Pantoprazole [Protonix] 40 mg PO DAILY 10/24/22 [History] Pregabalin [Lyrica] 100 mg PO TID 10/24/22 [History] Sertraline [Zoloft] 200 mg PO DAILY 10/24/22 [History] Topiramate [Topamax] 50 mg PO BID 10/24/22 [History] hydrOXYzine HCL [Atarax] 12.5 - 25 mg PO Q8H PRN 10/24/22 [History] lisinopriL [Zestril] 10 mg PO HS 10/24/22 [History] ondansetron HCL [Zofran] 8 mg PO Q8H PRN 10/24/22 [History] traZODone HCL [Desyrel] 100 mg PO HS 10/24/22 [History] Follow up Appointment(s)/Referral(s): Gerry Layne MD [STAFF PHYSICIAN] - 1 Week Deangelo Schneider MD [Primary Care Provider] - 1-2 days Natalia Lao MD [Medical Doctor] - 1 Week Ambulatory/Diagnostic Orders: Basic Metabolic Panel [LAB.AMB] Time Frame: 3 Days, Location: None Selected Activity/Diet/Wound Care/Special Instructions: Activity: as tolerated Diet: carb consistent Special Instructions: Your A1C (3 months blood sugar check) was 6.7 so at less than 7, diet changes may still be appropriate. Please discuss this further Dr. Schneider Please follow with Dr. Lao's clinic for your MS, it may be time for you to have repeat imaging to track your MS. Repeat potassium level in 3 days Thank you for trusting us with your care, we wish you well on your journey to better health. Discharge Disposition: HOME SELF-CARE
[2022-10-27 17:08] LABS: Glucose,Whole Blood 229 mg/dL (70-110)
== END 2022-10-27 19:00 | disposition home or self-care (01) | DRG 43 ==
LOC: EC 11:45 → 5NMEDONC 13:19
PROVIDERS: ADMIT Internal Medicine; ATTEND Internal Medicine
DX: G35 Multiple sclerosis (principal); E87.20 Acidosis, unspecified; R00.1 Bradycardia, unspecified; E78.5 Hyperlipidemia, unspecified; F43.10 Post-traumatic stress disorder, unspecified; R19.7 Diarrhea, unspecified; K21.9 Gastro-esophageal reflux disease without esophagitis; E86.0 Dehydration; I10 Essential (primary) hypertension; F41.9 Anxiety disorder, unspecified; E11.9 Type 2 diabetes mellitus without complications; E87.8 Other disorders of electrolyte and fluid balance, not elsewhere classified; Z88.0 Allergy status to penicillin; Z91.040 Latex allergy status; Z79.899 Other long term (current) drug therapy
CPT/HCPCS: 36415; 80048; 80053; 81001; 83036; 83735; 84132; 85025; 85027; 85652; 86140; 87086; 96361; 96365; 99285

== ENCOUNTER → 2022-10-30 | Outpatient (CLI) | payer OTHER ==
[2022-10-31 00:21] LABS: African American GFR (CKD) 83.4 (60.0-200.0); Anion Gap 15.2 mmol/L (10.00-18.00); BUN/Creat Ratio 21.56 Ratio (12.00-20.00); Blood Urea Nitrogen 19.4 mg/dL (9.0-27.0); Calcium 9.4 mg/dL (8.7-10.3); Carbon Dioxide 22.8 mmol/L (20.0-27.5); Potassium 3.3 mmol/L (3.5-5.5)
== END | disposition home or self-care (01) ==
LOC: LABWHC1 14:02
PROVIDERS: ATTEND Internal Medicine
DX: E87.6 Hypokalemia (principal)
CPT/HCPCS: 36415; 80048

== ENCOUNTER 2023-03-10 02:40 | Emergency (ER) | payer OTHER ==
[2023-03-10 02:53] VITALS: RESP 18; TEMP 98.1
[2023-03-10] MEDS ORDERED: KETOROLAC 15 MG/ML 1 ML VIAL IVP STA (03:22)
[2023-03-10] MEDS ORDERED: KETOROLAC 15 MG/ML 1 ML VIAL IM STA (03:27)
[2023-03-10] MEDS ORDERED: ONDANSETRON 4 MG/2 ML VIAL IM STA (03:27)
[2023-03-10] MEDS: ONDANSETRON 4 MG/2 ML VIAL IVP STA ×2 (03:28→04:18)
[2023-03-10 03:42] LABS: Bacteria,Urine Rare /hpf; Calcium Oxalate Crystals,Urine Many /hpf; Color,Urine Dark Orange; Hyaline Casts,Urine 6 /lpf (0-2); Mucus,Urine Moderate /hpf; RBC,Urine 21 /hpf (0-5); Squamous Epithelial Cell,Urine 11 /hpf (0-4); WBC,Urine 4 /hpf (0-5)
[2023-03-10 03:43] LABS: Appearance,Urine Clear (Clear)
--- NOTE | 2023-03-10 04:32 | ED ---
Abdominal Pain HPI - General Source: patient Mode of arrival: ambulatory Limitations: no limitations <Shad Mendoza - Last Filed: 03/10/23 04:31> <Angel Fontanez - Last Filed: 03/10/23 06:44> - General Chief Complaint: Abdominal Pain Stated Complaint: uti, abd pain Time Seen by Provider: 03/10/23 02:58 - History of Present Illness Initial Comments: 57-year-old female presenting with chief complaint of right-sided flank pain. Flank pain started suddenly this evening. Patient also states that she has had dysuria preceding this flank pain. No fevers or chills. This evening she began experiencing nausea and vomiting. No history of kidney stones. No hematuria. No chest pain or difficulty breathing. (Shad Mendoza) - Related Data Home Medications Medication Instructions Recorded Confirmed Atorvastatin [Lipitor] 20 mg PO HS 10/24/22 10/24/22 Dalfampridine [Dalfampridine ER] 10 mg PO BID 10/24/22 10/24/22 Fingolimod HCl [Gilenya] 0.5 mg PO DAILY 10/24/22 10/24/22 Pantoprazole [Protonix] 40 mg PO DAILY 10/24/22 10/24/22 Pregabalin [Lyrica] 100 mg PO TID 10/24/22 10/24/22 Sertraline [Zoloft] 200 mg PO DAILY 10/24/22 10/24/22 Topiramate [Topamax] 50 mg PO BID 10/24/22 10/24/22 hydrOXYzine HCL [Atarax] 12.5 - 25 mg PO Q8H PRN 10/24/22 10/24/22 lisinopriL [Zestril] 10 mg PO HS 10/24/22 10/24/22 ondansetron HCL [Zofran] 8 mg PO Q8H PRN 10/24/22 10/24/22 traZODone HCL [Desyrel] 100 mg PO HS 10/24/22 10/24/22 Previous Rx's Medication Instructions Recorded Ketorolac [Toradol] 10 mg PO Q6HR PRN 3 Days #9 tab 03/10/23 Ondansetron Odt [Zofran Odt] 4 mg PO Q8HR PRN #12 tab 03/10/23 Allergies Allergy/AdvReac Type Severity Reaction Status Date / Time latex Allergy Rash/Hives Verified 03/10/23 02:53 Penicillins Allergy Rash/Hives Verified 03/10/23 02:53 Review of Systems ROS Other: All systems not noted in ROS Statement are negative. <Shad Mendoza - Last Filed: 03/10/23 04:31> ROS Other: All systems not noted in ROS Statement are negative. <Angel Fontanez - Last Filed: 03/10/23 06:44> ROS Statement: Those systems with pertinent positive or pertinent negative responses have been documented in the HPI. Past Medical History Past Medical History: Diabetes Mellitus, Hypertension Additional Past Medical History / Comment(s): MS History of Any Multi-Drug Resistant Organisms: C-DIFF Date of last positivie culture/infection: 2009 MDRO Source:: Stool Past Surgical History: No Surgical Hx Reported Past Anesthesia/Blood Transfusion Reactions: No Reported Reaction Additional Past Anesthesia/Blood Transfusion Reaction / Comment(s): pt states she has woken up during surgery in the past Past Psychological History: Anxiety, PTSD Smoking Status: Vaper Past Alcohol Use History: Rare Past Drug Use History: Marijuana <Shad Mendoza - Last Filed: 03/10/23 04:31> General Exam Limitations: no limitations General appearance: alert, in no apparent distress Head exam: Present: atraumatic, normocephalic, normal inspection Eye exam: Present: normal appearance, EOMI Neck exam: Present: normal inspection, full ROM Respiratory exam: Present: normal lung sounds bilaterally. Absent: respiratory distress, wheezes, rales, rhonchi, stridor Cardiovascular Exam: Present: regular rate, normal rhythm, normal heart sounds. Absent: systolic murmur, diastolic murmur, rubs, gallop, clicks Back exam: Present: CVA tenderness (R). Absent: CVA tenderness (L) Neurological exam: Present: alert, oriented X3, CN II-XII intact Psychiatric exam: Present: normal affect, normal mood Skin exam: Present: warm, dry, intact, normal color. Absent: rash <Shad Mendoza - Last Filed: 03/10/23 04:31> Course Vital Signs 03/10/23 02:51 Temperature 98.1 F Pulse Rate 66 Respiratory 18 Rate Blood Pressure 173/105 O2 Sat by Pulse 98 Oximetry Medical Decision Making <Shad Mendoza - Last Filed: 03/10/23 04:31> - Lab Data Result diagrams: 03/10/23 05:26 03/10/23 05:26 <Angel Fontanez - Last Filed: 03/10/23 06:44> - Medical Decision Making Was pt. sent in by a medical professional or institution (, PA, [facility], urgent care, hospital, or fdc...) When possible be specific @ -No Did you speak to anyone other than the patient for history (EMS, parent, family, police, friend...)? What history was obtained from this source @ -No Did you review nursing and triage notes (agree or disagree)? Why? @ -I reviewed and agree with nursing and triage notes Were old charts reviewed (outside hosp., previous admission, EMS record, old EKG, old radiological studies, urgent care reports/EKG's, fdc records)? Report findings @ -No old charts were reviewed Differential Diagnosis (chest pain, altered mental status, abdominal pain women, abdominal pain men, vaginal bleeding, weakness, fever, dyspnea, syncope, headache, dizziness, GI bleed, back pain, seizure, CVA, palpatations, mental h ealth, musculoskeletal)? @ - MDM Differential Back Pain: Strain, zoster, cauda equina syndrome, epidural abscess, vertebral osteomyelitis, discitis, fracture, subluxation, disc herniation, DJD, spinal stenosis, dissection, AAA, pancreatitis, peptic ulcer disease, pyelonephritis, kidney stone this is not meant to be an all-inclusive list. EKG interpreted by me (3pts min.). @ -As above X-rays interpreted by me (1pt min.). @ -None done (Shad Mendoza) Patient is signed out to me by previous shift physician emergency medicine physician assistant, Shikha Mendoza. Briefly, patient is a 57-year-old female history multiple sclerosis this to the emergency department for right-sided flank pain. Vital cyanosis follow-up with pending CT studies. Laboratory evaluation was added on by me. CBC and metabolic panel within acceptable limits. Urinalysis reviewed showing [address] of the and pelvis without contrast was ordered showing distal 5 mm obstructing stone. Patient reevaluated bedside at 6:42 AM on abuse in stable medical condition. Patient is agreeable for discharge. Given outpatient referral to urology. Return precautions discussed. (Angel Fontanez) - Lab Data Lab Results 03/10/23 03/10/23 03/10/23 Range/Units 03:08 05:26 05:26 WBC 8.6 (3.8-10.6) k/uL RBC 4.25 (3.80-5.40) m/uL Hgb 12.7 (11.4-16.0) gm/dL Hct 37.8 (34.0-46.0) % MCV 88.8 (80.0-100.0) fL MCH 29.8 (25.0-35.0) pg MCHC 33.6 (31.0-37.0) g/dL RDW 13.2 (11.5-15.5) % Plt Count 200 (150-450) k/uL MPV 9.1 Neutrophils % 89 % Lymphocytes % 4 % Monocytes % 4 % Eosinophils % 2 % Basophils % 0 % Neutrophils # 7.7 (1.3-7.7) k/uL Lymphocytes # 0.3 L (1.0-4.8) k/uL Monocytes # 0.3 (0-1.0) k/uL Eosinophils # 0.2 (0-0.7) k/uL Basophils # 0.0 (0-0.2) k/uL Sodium 140 (137-145) mmol/L Potassium 3.4 L (3.5-5.1) mmol/L Chloride 112 H (98-107) mmol/L Carbon Dioxide 19 L (22-30) mmol/L Anion Gap 9 mmol/L BUN 16 (7-17) mg/dL Creatinine 0.82 (0.52-1.04) mg/dL Est GFR (CKD-EPI)AfAm >90 (>60 ml/min/1.73 sqM) Est GFR (CKD-EPI)NonAf 81 (>60 ml/min/1.73 sqM) Glucose 139 H (74-99) mg/dL Calcium 9.0 (8.4-10.2) mg/dL Urine Color Dark [place] Urine Appearance Clear (Clear) Urine RBC 21 H (0-5) /hpf Urine WBC 4 (0-5) /hpf Ur Squamous Epith Cells 11 H (0-4) /hpf Calcium Oxalate Crystal Many H (None) /hpf Urine Bacteria Rare H (None) /hpf Hyaline Casts 6 H (0-2) /lpf Urine Mucus Moderate H (None) /hpf Disposition <Shad Mendoza - Last Filed: 03/10/23 04:31> Is patient prescribed a controlled substance at d/c from ED?: No Time of Disposition: 06:44 <Angel Fontanez - Last Filed: 03/10/23 06:44> Clinical Impression: Kidney stone Disposition: HOME SELF-CARE Condition: Fair Instructions (If sedation given, give patient instructions): Kidney Stones (ED) Prescriptions: Ketorolac [Toradol] 10 mg PO Q6HR PRN 3 Days #9 tab PRN Reason: Pain Ondansetron Odt [Zofran Odt] 4 mg PO Q8HR PRN #12 tab PRN Reason: Nausea Referrals: Kishan Souza MD [STAFF PHYSICIAN] - 1-2 days
[2023-03-10 05:41] LABS: Basophils % (A) 0 %; Eosinophils # (A) 0.2 k/uL (0-0.7); Eosinophils % (A) 2 %; HCT 37.8 % (34.0-46.0); HGB 12.7 gm/dL (11.4-16.0); Lymphocytes # (A) 0.3 k/uL (1.0-4.8); Lymphocytes % (A) 4 %; MCH 29.8 pg (25.0-35.0); MCHC 33.6 g/dL (31.0-37.0); MCV 88.8 fL (80.0-100.0); Mean Platelet Volume 9.1; Monocytes # (A) 0.3 k/uL (0-1.0); Monocytes % (A) 4 %; Neutrophils # (A) 7.7 k/uL (1.3-7.7); Neutrophils % (A) 89 %; Platelet Count 200 k/uL (150-450); RBC 4.25 m/uL (3.80-5.40); RDW 13.2 % (11.5-15.5); WBC 8.6 k/uL (3.8-10.6)
[2023-03-10 05:50] LABS: African American GFR (CKD) >90 (>60 ml/min/1.73 sqM); Anion Gap 9 mmol/L; Blood Urea Nitrogen 16 mg/dL (7-17); Carbon Dioxide 19 mmol/L (22-30); Chloride 112 mmol/L (98-107); Glucose 139 mg/dL (74-99); Non-African American GFR(CKD) 81 (>60 ml/min/1.73 sqM); Potassium 3.4 mmol/L (3.5-5.1); Sodium 140 mmol/L (137-145)
--- NOTE | 2023-03-10 06:31 | CT ---
EXAM: CT Abdomen and Pelvis Without Intravenous Contrast CLINICAL HISTORY: ITS.REASON CT Reason: R flank pain TECHNIQUE: Axial computed tomography images of the abdomen and pelvis without intravenous contrast. CTDI is 16 mGy and DLP is 938.6 mGy-cm. This CT exam was performed using one or more of the following dose reduction techniques: automated exposure control, adjustment of the mA and/or kV according to patient size, and/or use of iterative reconstruction technique. COMPARISON: No relevant prior studies available. FINDINGS: Lung bases: Unremarkable. No mass. No consolidation. ABDOMEN: Liver: 30 mm right hepatic hypodensity (series 2, image 28). Gallbladder and bile ducts: Unremarkable. No calcified stones. No ductal dilation. Pancreas: 20 mm dorsal body/tail junction pancreatic hypodense lesion (series 201 image 32). No ductal dilation. Spleen: Unremarkable. No splenomegaly. Adrenals: Unremarkable. No mass. Kidneys and ureters: Mild right hydroureteronephrosis, perinephric and periureteral stranding, with 5 mm distal left ureteral calculus just proximal to the ureterovesical junction. Stomach and bowel: Small gastric fundal diverticulum. No obstruction. No mucosal thickening. PELVIS: Appendix: No findings to suggest acute appendicitis. Bladder: Unremarkable. No stones. Reproductive: Unremarkable as visualized. ABDOMEN and PELVIS: Intraperitoneal space: Unremarkable. No free air. No significant fluid collection. Bones/joints: No acute fracture. No dislocation. Soft tissues: Unremarkable. Vasculature: Unremarkable. No abdominal aortic aneurysm. Lymph nodes: Unremarkable. No enlarged lymph nodes. IMPRESSION: 1. Moderate obstructive changes associated with a 5 mm distal right ureteral calculus. 2. Pancreatic hypodense nodule, suspicious for pancreatic neoplasm. Dedicated pancreas protocol pre-and postcontrast CT/MRI recommended. 3. Hepatic hypodensity, nonspecific given the above findings.
[2023-03-10 07:09] VITALS: BP 148/89; PULSE 59
== END 2023-03-10 07:09 | disposition home or self-care (01) ==
LOC: EC 02:40
DX: N20.0 Calculus of kidney (principal); E11.9 Type 2 diabetes mellitus without complications; I10 Essential (primary) hypertension; F17.290 Nicotine dependence, other tobacco product, uncomplicated; F12.90 Cannabis use, unspecified, uncomplicated; F41.9 Anxiety disorder, unspecified; Z79.899 Other long term (current) drug therapy; Z88.0 Allergy status to penicillin; Z91.040 Latex allergy status
CPT/HCPCS: 36415; 80048; 85025; 81001; 74176; 99284; 96372 ×2; J2405; J1885

== ENCOUNTER 2023-03-16 15:34 | Emergency (ER) | payer OTHER ==
[2023-03-16] MEDS ORDERED: METOCLOPRAMIDE 5 MG/ML 2 ML VIAL IVP STA (17:01)
[2023-03-16] MEDS ORDERED: HYDROmorphone 1 MG/ML 1 ML SYRINGE IVP STA (17:02)
--- NOTE | 2023-03-16 17:06 | ED ---
General Adult HPI - General Chief complaint: Abdominal Pain Stated complaint: abd pain Time Seen by Provider: 03/16/23 16:43 Source: patient, old records reviewed (Including pancreatic lesion on CT. Patient confirms she was aware of this and has talked to her doctor about this and has scheduled MRI) Mode of arrival: ambulatory Limitations: no limitations - History of Present Illness Initial comments: Patient is a pleasant 57-year-old female presenting to the emergency Department with complaints of right flank pain. Onset of symptoms was over a week ago. Patient was here and had computed tomography scan confirming kidney stone. No history of previous. Patient has had persistent pain and nausea. Patient has spit up a couple times. Patient also has chronic back pain which is bothering her somewhat as well. No weakness. Patient has some mild dysuria. Patient questions a fever the other day. - Related Data Home Medications Medication Instructions Recorded Confirmed Atorvastatin [Lipitor] 20 mg PO HS 10/24/22 10/24/22 Dalfampridine [Dalfampridine ER] 10 mg PO BID 10/24/22 10/24/22 Fingolimod HCl [Gilenya] 0.5 mg PO DAILY 10/24/22 10/24/22 Pantoprazole [Protonix] 40 mg PO DAILY 10/24/22 10/24/22 Pregabalin [Lyrica] 100 mg PO TID 10/24/22 10/24/22 Sertraline [Zoloft] 200 mg PO DAILY 10/24/22 10/24/22 Topiramate [Topamax] 50 mg PO BID 10/24/22 10/24/22 hydrOXYzine HCL [Atarax] 12.5 - 25 mg PO Q8H PRN 10/24/22 10/24/22 lisinopriL [Zestril] 10 mg PO HS 10/24/22 10/24/22 ondansetron HCL [Zofran] 8 mg PO Q8H PRN 10/24/22 10/24/22 traZODone HCL [Desyrel] 100 mg PO HS 10/24/22 10/24/22 Previous Rx's Medication Instructions Recorded Ketorolac [Toradol] 10 mg PO Q6HR PRN 3 Days #9 tab 03/10/23 Ondansetron Odt [Zofran Odt] 4 mg PO Q8HR PRN #12 tab 03/10/23 Metoclopramide HCl [Reglan] 10 mg PO Q6HR PRN #15 tablet 03/16/23 Tamsulosin [Flomax] 0.4 mg PO DAILY #14 cap 03/16/23 Allergies Allergy/AdvReac Type Severity Reaction Status Date / Time latex Allergy Rash/Hives Verified 03/16/23 15:47 Penicillins Allergy Rash/Hives Verified 03/16/23 15:47 Review of Systems ROS Statement: Those systems with pertinent positive or pertinent negative responses have been documented in the HPI. ROS Other: All systems not noted in ROS Statement are negative. Constitutional: Reports: as per HPI Eyes: Denies: eye pain ENT: Denies: ear pain Respiratory: Denies: cough Cardiovascular: Denies: chest pain Gastrointestinal: Reports: as per HPI Past Medical History Past Medical History: Diabetes Mellitus, Hypertension Additional Past Medical History / Comment(s): MS History of Any Multi-Drug Resistant Organisms: C-DIFF Date of last positivie culture/infection: 2009 MDRO Source:: Stool Past Surgical History: No Surgical Hx Reported Past Anesthesia/Blood Transfusion Reactions: No Reported Reaction Additional Past Anesthesia/Blood Transfusion Reaction / Comment(s): pt states she has woken up during surgery in the past Past Psychological History: Anxiety, PTSD Smoking Status: Vaper Past Alcohol Use History: Rare Past Drug Use History: Marijuana General Exam Limitations: no limitations General appearance: alert, in no apparent distress Head exam: Present: normocephalic Eye exam: Present: normal appearance Neck exam: Present: normal inspection Respiratory exam: Present: normal lung sounds bilaterally Cardiovascular Exam: Present: regular rate, normal rhythm GI/Abdominal exam: Present: soft. Absent: tenderness Extremities exam: Present: normal inspection Back exam: Present: CVA tenderness (R) Neurological exam: Present: alert Psychiatric exam: Present: normal affect, normal mood Skin exam: Present: normal color Course Vital Signs 03/16/23 03/16/23 15:48 17:30 Temperature 98.2 F Pulse Rate 64 69 Respiratory 16 18 Rate Blood Pressure 144/81 135/85 O2 Sat by Pulse 100 96 Oximetry Medical Decision Making - Medical Decision Making Was pt. sent in by a medical professional or institution (, PA, DISTANCE EDUCATION FACULTY LIAISON, urgent care, hospital, or skilled nursing...) When possible be specific @ -No Did you speak to anyone other than the patient for history (EMS, parent, family, police, friend...)? What history was obtained from this source @ -No Did you review nursing and triage notes (agree or disagree)? Why? @ -I reviewed and agree with nursing and triage notes Were old charts reviewed (outside hosp., previous admission, EMS record, old EKG, old radiological studies, urgent care reports/EKG's, skilled nursing records)? Report findings @ -Previous visit and computed tomography scan results reviewed Differential Diagnosis (chest pain, altered mental status, abdominal pain women, abdominal pain men, vaginal bleeding, weakness, fever, dyspnea, syncope, headache, dizziness, GI bleed, back pain, seizure, CVA, palpatations, mental health, musculoskeletal)? @ -Differential Abdominal Pain Women: Appendicitis, Cholecystitis, diverticulosis, ischemic bowel, pancreatitis, hepatitis, UTI, gastroenteritis, AAA, incarcerated hernia, bowel obstruction, constipation, inflammatory bowel, hepatitis, peptic ulcer disease, splenic infarction, perforated viscus, vulvitis, ovarian torsion, PID, kidney stone, placenta abruption, this is not meant to be an all-inclusive list EKG interpreted by me (3pts min.). @ -As above X-rays interpreted by me (1pt min.). @ -Abdominal x-ray does not reveal acute abnormality CT interpreted by me (1pt min.). @ -None done U/S interpreted by me (1pt. min.). @ -None done What testing was considered but not performed or refused? (CT, X-rays, U/S, labs)? Why? @ -None What meds were considered but not given or refused? Why? @ -None Did you discuss the management of the patient with other professionals (professionals i.e. , PA, DISTANCE EDUCATION FACULTY LIAISON, lab, RT, psych nurse, social science instructor, organ recovery coordinator, teacher, tourist information officer, director of casework department)? Give summary @ -No Was smoking cessation discussed for >3mins.? @ -No Was critical care preformed (if so, how long)? @ -No Were there social determinants of health that impacted care today? How? (Homelessness, low income, unemployed, alcoholism, drug addiction, transportation, low edu. Level, literacy, decrease access to med. care, skilled nursing, rehab)? @ -No Was there de-escalation of care discussed even if they declined (Discuss DNR or withdrawal of care, Hospice)? DNR status @ -No What co-morbidities impacted this encounter? (DM, HTN, Smoking, COPD, CAD, Cancer, CVA, ARF, Chemo, Hep., AIDS, mental health diagnosis, sleep apnea, morb id obesity)? @ -None Was patient admitted / discharged? Hospital course, mention meds given and route, prescriptions, significant lab abnormalities, going to OR and other pertinent info. @ -Patient reevaluated and feeling much better. Patient updated on results and recommended close follow-up with urology. Undiagnosed new problem with uncertain prognosis? @ -No Drug Therapy requiring intensive monitoring for toxicity (Heparin, Nitro, Insulin, Cardizem)? @ -No Were any procedures done? @ -No Diagnosis/symptom? @ -Ureterolithiasis Acute, or Chronic, or Acute on Chronic? @ -Acute Uncomplicated (without systemic symptoms) or Complicated (systemic symptoms)? @ -default Side effects of treatment? @ -No Exacerbation, Progression, or Severe Exacerbation? @ -No Poses a threat to life or bodily function? How? (Chest pain, [place], [place], pneumonia, PE, COPD, DKA, ARF, appy, cholecystitis, CVA, Diverticulitis, Homicidal, S uicidal, threat to staff... and all critical care pts) @ -No - Lab Data Result diagrams: 03/16/23 17:12 03/16/23 17:12 Lab Results 03/16/23 03/16/23 03/16/23 Range/Units 17:12 17:12 17:12 WBC 8.7 (3.8-10.6) k/uL RBC 4.54 (3.80-5.40) m/uL Hgb 13.4 (11.4-16.0) gm/dL Hct 39.9 (34.0-46.0) % MCV 88.0 (80.0-100.0) fL MCH 29.5 (25.0-35.0) pg MCHC 33.6 (31.0-37.0) g/dL RDW 13.1 (11.5-15.5) % Plt Count 240 (150-450) k/uL MPV 8.2 Neutrophils % 90 % Lymphocytes % 3 % Monocytes % 5 % Eosinophils % 2 % Basophils % 0 % Neutrophils # 7.8 H (1.3-7.7) k/uL Lymphocytes # 0.3 L (1.0-4.8) k/uL Monocytes # 0.4 (0-1.0) k/uL Eosinophils # 0.1 (0-0.7) k/uL Basophils # 0.0 (0-0.2) k/uL PT 9.9 (9.0-12.0) sec INR 0.9 (<1.2) APTT 23.8 (22.0-30.0) sec Sodium 141 (137-145) mmol/L Potassium 3.3 L (3.5-5.1) mmol/L Chloride 111 H (98-107) mmol/L Carbon Dioxide 17 L (22-30) mmol/L Anion Gap 13 mmol/L BUN 14 (7-17) mg/dL Creatinine 0.87 (0.52-1.04) mg/dL Est GFR (CKD-EPI)AfAm 87 (>60 ml/min/1.73 sqM) Est GFR (CKD-EPI)NonAf 75 (>60 ml/min/1.73 sqM) Glucose 116 H (74-99) mg/dL Calcium 9.5 (8.4-10.2) mg/dL Total Bilirubin 0.5 (0.2-1.3) mg/dL AST 21 (14-36) U/L ALT 17 (4-34) U/L Alkaline Phosphatase 110 (38-126) U/L Total Protein 7.0 (6.3-8.2) g/dL Albumin 4.1 (3.5-5.0) g/dL Amylase 45 (30-110) U/L Lipase 28 (23-300) U/L Disposition Clinical Impression: Kidney stone Disposition: HOME SELF-CARE Condition: Stable Instructions (If sedation given, give patient instructions): Kidney Stones (ED) Additional Instructions: Please do follow-up with urology in the next day or 2 for recheck, number provided. Please also follow-up to primary care physician in the next couple days for recheck. Estrogen sent to pharmacy. Return for increased HEENT, fever, uncontrolled vomiting, worsening symptoms or other concerns. Please also follow-up with your primary care physician regarding previous pancreatic abnormality on computed tomography scan. Prescriptions: Tamsulosin [Flomax] 0.4 mg PO DAILY #14 cap Metoclopramide HCl [Reglan] 10 mg PO Q6HR PRN #15 tablet PRN Reason: Nausea Is patient prescribed a controlled substance at d/c from ED?: No Referrals: Deangelo Schneider MD [Primary Care Provider] - 1-2 days Pernell Tomlinson MD [STAFF PHYSICIAN] - 1-2 days Time of Disposition: 18:38
[2023-03-16 17:32] VITALS: RESP 18
[2023-03-16 17:49] LABS: Basophils % (A) 0 %; Eosinophils # (A) 0.1 k/uL (0-0.7); Eosinophils % (A) 2 %; HCT 39.9 % (34.0-46.0); HGB 13.4 gm/dL (11.4-16.0); Lymphocytes # (A) 0.3 k/uL (1.0-4.8); Lymphocytes % (A) 3 %; MCH 29.5 pg (25.0-35.0); MCHC 33.6 g/dL (31.0-37.0); Mean Platelet Volume 8.2; Monocytes # (A) 0.4 k/uL (0-1.0); Monocytes % (A) 5 %; Neutrophils # (A) 7.8 k/uL (1.3-7.7); Neutrophils % (A) 90 %; Platelet Count 240 k/uL (150-450); RBC 4.54 m/uL (3.80-5.40); RDW 13.1 % (11.5-15.5); WBC 8.7 k/uL (3.8-10.6)
--- NOTE | 2023-03-16 17:54 | XR ---
EXAMINATION TYPE: XR abdomen 1V DATE OF EXAM: 03/16/2023 5:19 PM INDICATION: Patient age:Female; 57 years old; Reason for study: kub; COMPARISON: 10/31/2009 TECHNIQUE: One radiographic view of the abdomen was obtained. FINDINGS: The bowel gas pattern is nonspecific without dilated loops of small or large bowel. There i s no evidence for organomegaly or pneumoperitoneum. The osseous structures are intact. No abnormal calcifications are present. Fecal material and gas are demonstrated throughout the colon and rectum. IMPRESSION: Nonspecific bowel gas pattern without radiographic evidence for acute process.
[2023-03-16 18:01] LABS: INR 0.9 (<1.2); Partial Thromboplastin Time 23.8 sec (22.0-30.0); Prothrombin Time 9.9 sec (9.0-12.0)
[2023-03-16 18:03] LABS: ALT 17 U/L (4-34); AST 21 U/L (14-36); African American GFR (CKD) 87 (>60 ml/min/1.73 sqM); Albumin 4.1 g/dL (3.5-5.0); Alkaline Phosphatase 110 U/L (38-126); Amylase 45 U/L (30-110); Anion Gap 13 mmol/L; Blood Urea Nitrogen 14 mg/dL (7-17); Calcium 9.5 mg/dL (8.4-10.2); Carbon Dioxide 17 mmol/L (22-30); Chloride 111 mmol/L (98-107); Glucose 116 mg/dL (74-99); Lipase 28 U/L (23-300); Non-African American GFR(CKD) 75 (>60 ml/min/1.73 sqM); Potassium 3.3 mmol/L (3.5-5.1); Sodium 141 mmol/L (137-145); Total Bilirubin 0.5 mg/dL (0.2-1.3)
[2023-03-16 18:51] VITALS: BP 124/87; PULSE 62; TEMP 98.3
[2023-03-16] MEDS ORDERED: ACET/COD 300 MG/30 MG STARTER PACK 6 TAB BTL PO STA (19:10)
== END 2023-03-16 19:35 | disposition home or self-care (01) ==
LOC: SUPCPDRO 15:34 → EC 15:34
DX: N20.0 Calculus of kidney (principal); I10 Essential (primary) hypertension; E11.9 Type 2 diabetes mellitus without complications; F41.9 Anxiety disorder, unspecified; Z79.899 Other long term (current) drug therapy; F12.90 Cannabis use, unspecified, uncomplicated; F17.290 Nicotine dependence, other tobacco product, uncomplicated; Z88.0 Allergy status to penicillin; Z91.040 Latex allergy status
CPT/HCPCS: 36415; 80053; 82150; 83690; 85025; 85610; 85730; 74018; 99284; 96374; 96375; J2765; J1170

== ENCOUNTER → 2023-05-08 | Outpatient (CLI) | payer OTHER ==
[2023-05-08 16:36] LABS: Basophils # (A) 0.03 X 10*3/uL (0.00-0.10); Basophils % (A) 0.8 %; Eosinophils # (A) 0.03 X 10*3/uL (0.04-0.35); Eosinophils % (A) 0.8 %; HCT 40.7 % (37.2-46.3); HGB 12.8 d/dL (12.0-15.0); Lymphocytes # (A) 0.44 X 10*3/uL (0.90-5.00); MCH 29.1 pg (27.0-32.0); MCHC 31.4 d/dL (32.0-37.0); MCV 92.5 FL (80.0-97.0); Mean Platelet Volume 11.8 FL (9.5-12.2); Monocytes # (A) 0.31 X 10*3/uL (0.20-1.00); Monocytes % (A) 8.5 %; NRBC Per 100 WBC 0 X 10*3/uL (0.00-0.01); Neutrophils # (A) 2.84 X 10*3/uL (1.80-7.70); Neutrophils % (A) 77.6 %; Platelet Count 269 X 10*3/uL (140-440); RDW 13.7 % (11.5-14.5); WBC 3.66 X 10*3/uL (4.50-10.00)
[2023-05-08 16:40] LABS: ALT 27 U/L (8-44); AST 20 U/L (13-35); Albumin 4.4 d/dL (3.8-4.9); Alkaline Phosphatase 112 U/L (41-126); BUN/Creat Ratio 21.88 Ratio (12.00-20.00); Blood Urea Nitrogen 17.5 mg/dL (9.0-27.0); Calcium 10.1 mg/dL (8.7-10.3); Carbon Dioxide 21.3 mmol/L (21.6-31.8); Chloride 109 mmol/L (96-109); Globulin 2.1 d/dL (1.6-3.3); Glucose 135 mg/dL (70-110); Potassium 4.3 mmol/L (3.5-5.5); Sodium 143 mmol/L (135-145); Total Bilirubin 0.4 mg/dL (0.3-1.2); Total Protein 6.5 d/dL (6.2-8.2)
== END | disposition home or self-care (01) ==
LOC: LABWHC1 10:16
PROVIDERS: ATTEND Physician Assistant
DX: Z00.00 Encounter for general adult medical examination without abnormal findings (principal); G35 Multiple sclerosis
CPT/HCPCS: 36415; 80053; 85025

== ENCOUNTER → 2024-08-16 | Outpatient (CLI) | payer MEDICARE | LOC: LABWHC1 12:36 | PROVIDERS: ATTEND Psychiatry & Neurology Neurology | DX: I49.9 Cardiac arrhythmia, unspecified (principal); Z53.9 Procedure and treatment not carried out, unspecified reason ==